=== PATIENT | male | born 1950 | race Caucasian/White ===

== ENCOUNTER 2018-01-03 00:08 | Emergency (ER) | payer OTHER ==
--- OUTSIDE RECORDS SUMMARY | 2018-01-03 00:11 | XMS REPORT | Summary of Care ---
:1950 Author Organization [facility] Address [address], [place] [address]- Encounter HQ Encntr_alias(FIN) [id number] Date(s): 10/14/15 - 10/14/15 [facility] [address] [place] [id number]- [place] Discharge Disposition: Home or Self Care Attending Physician: Azael Santiago MD Referring Physician: Physician, Non Associated MD Vital Signs No data available for this section Problem List Condition Effective Dates Status Health Status Informant Anemia(Confirmed) Resolved Arrhythmia(Confirmed) Resolved Hypoglycemic(Confirmed) Resolved Hypothyroidism(Confirmed) Resolved Migraines(Confirmed) Resolved Pituitary cyst(Confirmed) Resolved Allergies, Adverse Reactions, Alerts Substance Reaction Severity Status NKDA Active Medications No data available for this section Results No data available for this section Immunizations No data available for this section Procedures Procedure Date Related Diagnosis Body Site Knee arthroplasty TURP - Transurethral resection of prostate Social History Social History Type Response Substance Abuse IV drug use: No. Smoking Status Never smoker; Exposure to Tobacco Smoke None; Cigarette Smoking Last 365 Days No; Reg Smoking Cessation Counseling No Assessment and Plan No data available for this section
--- OUTSIDE RECORDS SUMMARY | 2018-01-03 00:11 | XMS REPORT | Summary of Care ---
:1950 Author Organization [facility] Address [address], [place] [address]- Encounter HQ Beena(ARLEN) [id number] Date(s): 09/02/15 - 09/02/15 [facility] [address] [place] [id number] [facility] Discharge Disposition: Home Attending Physician: Adolph Krueger MD Referring Physician: Adolph Krueger MD Vital Signs Most recent to oldest 1 2 3 [Reference Range]: Height 172.72 cm (09/02/15 6:14 AM) Blood Pressure [90-140/60-90 104/56 mmHg 104/58 mmHg 105/57 mmHg mmHg] (09/02/15 11:00 AM) (09/02/15 10:45 AM) (09/02/15 10:30 AM) Respiratory Rate [14-20 BRMIN] 16 BRMIN 13 BRMIN 6 BRMIN (09/02/15 11:00 AM) *LOW* *LOW* (09/02/15 10:45 AM) (09/02/15 10:30 AM) Weight 72.727 kg (09/02/15 6:14 AM) Body Mass Index 24.38 m2 (09/02/15 6:14 AM) Problem List Condition Effective Dates Status Health Status Informant Anemia(Confirmed) Resolved Arrhythmia(Confirmed) Resolved Hypoglycemic(Confirmed) Resolved Hypothyroidism(Confirmed) Resolved Migraines(Confirmed) Resolved Pituitary cyst(Confirmed) Resolved Allergies, Adverse Reactions, Alerts Substance Reaction Severity Status NKDA Active Medications fentaNYL 100 microgram, Route: IV, ONCE, Dosing Weight 72.727, kg, Start date: 09/02/15 8 :02:00 CDT, Stop date: 09/02/15 8:02:00 CDT Start Date: 09/02/15 Stop Date: 09/02/15 Status: Completedlidocaine 2% MPF 5 mL, Route: SUB-Q, Dosing Weight 72.727, kg, ONCE, Start date: 09/02/15 8:02: 00 CDT, Stop date: 09/02/15 8:02:00 CDT Start Date: 09/02/15 Stop Date: 09/02/15 Status: Completedmidazolam 2 mg, Route: IV, ONCE, Dosing Weight 72.727, kg, Start date: 09/02/15 8:03:00 CDT, Stop date: 09/02/15 8:03:00 CDT Start Date: 09/02/15 Stop Date: 09/02/15 Status: CompletedOmnipaque 300 150 ml, Route: INTRAARTERIAL, Dosing Weight 72.727, kg, ONCE, Start date: 8:02:00 CDT, Stopdate: 09/02/15 8:02:00 CDT Start Date: 09/02/15 Stop Date: 09/02/15 Status: Completed Results No data available for this section [...]
[2018-01-03 00:46] LABS: Absolute Lymphocytes (CBC) 1.1 K/uL (0.7-4.9); Absolute Monocytes 0.9 K/uL (0.1-1.3); Basophils % 0.8 % (0-1.3); Eosinophils % 0.3 % (0-4.4); Hematocrit 40.5 % (39.6-49.0); Lymphocytes % 10.5 % (15.3-44.8); MCH 30.5 pg (27.0-35.0); MCV 91.2 fL (80-100); MPV 8.5 fL (7.6-11.3); Monocytes % 8.9 % (3.3-12.3); RBC Red Blood Cell Count 4.44 M/uL (4.33-5.43)
[2018-01-03 01:04] LABS: Albumin 3.1 g/dL (3.4-5.0); Bilirubin Direct 0.6 mg/dL (0-0.2); Bilirubin Total 1.6 mg/dL (0.2-1.0); Potassium 3.2 mmol/L (3.5-5.1)
[2018-01-03] MEDS ORDERED: NA CHLORIDE 0.9% 1,000 ML ONE (01:31)
[2018-01-03] MEDS ORDERED: POTASSIUM CL SA 10 MEQ TAB PO ONE (02:12)
[2018-01-03] MEDS ORDERED: KCL 20 MEQ/100 mL IVPB 20 MEQ/100 ML BAG IV ONE (02:13)
--- NOTE | 2018-01-03 03:00 | ER ---
Nurse's Notes [facility] Name: Morales Conway Age: 67 yrs Sex: Male : 1950 Arrival Date: 01/03/2018 Time: 00:12 Bed 14 Private MD: Diagnosis: Diarrhea, unspecified;Hypokalemia Presentation: 01/03 00:27 Presenting complaint: Patient states: he has stage IV prostate cancer and has had bb diarrhea x 2 days he is feeling very weak and short of breath and has not been able to eat or drink. Transition of care: patient was not received from another setting of care. Onset of symptoms was December 31, 2017. Risk Assessment: Do you want to hurt yourself or someone else? Patient reports no desire to harm self or others. Initial Sepsis Screen: Does the patient meet any 2 criteria? Yes Does the patient have a suspected source of infection? Yes: Other: pt is immunocompromised. Care prior to arrival: None. 00:27 Method Of Arrival: Ambulatory bb 00:27 Acuity: RUBIO 2 bb Historical: - Allergies: 00:35 No Known Allergies; bb - Home Meds: 00:35 Zetia 10 mg Oral tab 1 tab once daily [Active]; Synthroid Oral [Active]; Zytiga 250 mg bb Oral tab 4 tabs once daily [Active]; prednisone 5 mg Oral tab 1 tab 2 times per day [Active]; felodipine 5 mg Oral Tb24 1 tab once daily [Active]; levetiracetam 500 mg Oral tab 1 tab 2 times per day [Active]; Xarelto 10 mg Oral tab 1 tab once daily [Active]; calcium [Active]; metoprolol succinate oral oral [Active]; Lupron Depot (4 Month) 30 mg intramuscular sykt every 4 mo [Active]; Xgeva subcutaneous subcutaneous [Active]; - PMHx: 00:35 Atrial Fib; High Cholesterol; Hypertension; Hypothyroidism; PROSTATE CA; Seizures; bb - PSHx: 00:35 Knee surgery; nephrostomy tube (discontinued); bb - Immunization history:: Adult Immunizations up to date. - Social history:: Smoking status: Patient/guardian denies using tobacco, Patient/guardian denies using alcohol, street drugs. - Ebola Screening: : No symptoms or risks identified at this time. Screenin:44 Abuse screen: Denies threats or abuse. Nutritional screening: No deficits noted. jb4 Tuberculosis screening: No symptoms or risk factors identified. Fall Risk IV access (20 points). Assessment: 00:41 General: Appears in no apparent distress. uncomfortable, Behavior is calm, cooperative, jb4 appropriate for age. Pain: Denies pain. Neuro: Level of Consciousness is awake, alert, obeys commands, Oriented to person, place, time, situation. Cardiovascular: Heart tones S1 S2 present Patient's skin is warm and dry. Respiratory: Airway is patent Respiratory effort is even, unlabored, Respiratory pattern is regular, symmetrical, Breath sounds are clear bilaterally. GI: Abdomen is round non-distended, Bowel sounds present X 4 quads. Abd is soft and non tender X 4 quads. : No signs and/or symptoms were reported regarding the genitourinary system. EENT: No signs and/or symptoms were reported regarding the EENT system. Derm: Skin is intact, Skin is pink, warm \T\ dry. Musculoskeletal: Circulation, motion, and sensation intact. Reports weakness in generalized. 01:40 Reassessment: Patient appears in no apparent distress at this time. Patient and/or jb4 family updated on plan of care and expected duration. Pain level reassessed. Patient is alert, oriented x 3, equal unlabored respirations, skin warm/dry/pink. 03:00 Reassessment: Patient appears in no apparent distress at this time. Patient and/or jb4 family updated on plan of care and expected duration. Pain level reassessed. Patient is alert, oriented x 3, equal unlabored respirations, skin warm/dry/pink. 03:26 Reassessment: waiting for IV potassium to finish before discharge. jb4 03:45 Reassessment: Patient appears in no apparent distress at this time. Patient and/or jb4 family updated on plan of care and expected duration. Pain level reassessed. Patient is alert, oriented x 3, equal unlabored respirations, skin warm/dry/pink. Discussed D/c, F/u with pt and family, denies questions or concerns. Vital Signs: 00:35 BP 99 / 74; Pulse 119; Resp 26 S; Temp 99(O); Pulse Ox 94% on R/A; Weight 86.18 kg (R); bb Height 5 ft. 8 in. (172.72 cm) (R); Pain 0/10; 01:53 BP 102 / 66; Pulse 93; Resp 20; Pulse Ox 96% on R/A; oe 02:00 BP 118 / 67; Pulse 90; Resp 20; Pulse Ox 97% on R/A; jb4 03:00 BP 108 / 76; Pulse 110; Resp 20; Pulse Ox 94% on R/A; jb4 03:30 BP 126 / 67; Pulse 100; Resp 18; Pulse Ox 96% on R/A; jb4 00:35 Body Mass Index 28.89 (86.18 kg, 172.72 cm) bb ED Course: 00:12 Patient arrived in ED. al2 00:20 Duncan Leblanc MD is Attending Physician. tw4 00:23 Paulie Lee, LON is Primary Nurse. jb4 00:31 Triage completed. bb 00:35 Arm band placed on Patient placed in an exam room, on a stretcher, on pulse oximetry. bb Family accompanied patient. 00:44 Patient has correct armband on for positive identification. Bed in low position. Call jb4 light in reach. Side rails up X 1. Pulse ox on. NIBP on. 00:44 Initial lab(s) drawn, by me, sent to lab. Inserted saline lock: 22 gauge in left jb4 antecubital area, using aseptic technique. Blood collected. 03:00 No provider procedures requiring assistance completed. jb4 03:45 IV discontinued, intact, bleeding controlled. jb4 Administered Medications: 01:00 Drug: NS 0.9% 1000 ml Route: IV; Rate: 1000 ml; Site: left femoral; jb4 02:45 Follow up: Response: No adverse reaction; IV Status: Completed infusion jb4 02:15 Drug: Potassium Chloride 40 mEq Route: PO; jb4 03:56 Follow up: Response: No adverse reaction jb4 02:16 Drug: Potassium Chloride 20 mEq Route: IV; Rate: calculated rate; Site: left jb4 antecubital; 03:56 Follow up: Response: No adverse reaction; IV Status: Completed infusion jb4 Outcome: 03:00 Discharge ordered by . tw4 03:45 Discharged to home ambulatory. jb4 03:45 Condition: stable 03:45 Discharge instructions given to patient, family, Instructed on discharge instructions, follow up and referral plans. medication usage, Demonstrated understanding of instructions, follow-up care, medications, Prescriptions given X 1. 03:50 Patient left the ED. jb4 Signatures: Cinda Thakur RN RN Paulie Bell RN RN jb4 Titi Ariza Angelica al2 Wadley, Terrence, MD MD tw4 Corrections: (The following items were deleted from the chart) :01/02 22:30 Response: No adverse reaction; Marked relief of symptoms jb4 jb4 01/03 01:23 01:22 Response: No adverse reaction; Marked relief of symptoms jb4 jb4
--- NOTE | 2018-01-03 03:00 | EDPHYS ---
Physician Documentation [facility] Name: Morales Conway Age: 67 yrs Sex: Male : 1950 Arrival Date: 01/03/2018 Time: 00:12 Bed 14 Private MD: ED Physician Duncan Leblanc HPI: 01/03 01:42 This 67 yrs old Male presents to ER via Ambulatory with complaints of tw4 Diarrhea. 01:42 The patient presents to the emergency department with diarrhea. Onset: The tw4 symptoms/episode began/occurred 3 day(s) ago. Possible causes: unknown. The symptoms are aggravated by nothing. The symptoms are alleviated by nothing. Associated signs and symptoms: The patient has no apparent associated signs or symptoms. Severity of symptoms: At their worst the symptoms were moderate in the emergency department the symptoms are unchanged. The patient has not experienced similar symptoms in the past. Historical: - Allergies: 00:35 No Known Allergies; bb - Home Meds: 00:35 Zetia 10 mg Oral tab 1 tab once daily [Active]; Synthroid Oral [Active]; Zytiga 250 mg bb Oral tab 4 tabs once daily [Active]; prednisone 5 mg Oral tab 1 tab 2 times per day [Active]; felodipine 5 mg Oral Tb24 1 tab once daily [Active]; levetiracetam 500 mg Oral tab 1 tab 2 times per day [Active]; Xarelto 10 mg Oral tab 1 tab once daily [Active]; calcium [Active]; metoprolol succinate oral oral [Active]; Lupron Depot (4 Month) 30 mg intramuscular sykt every 4 mo [Active]; Xgeva subcutaneous subcutaneous [Active]; - PMHx: 00:35 Atrial Fib; High Cholesterol; Hypertension; Hypothyroidism; PROSTATE CA; Seizures; bb - PSHx: 00:35 Knee surgery; nephrostomy tube (discontinued); bb - Immunization history:: Adult Immunizations up to date. - Social history:: Smoking status: Patient/guardian denies using tobacco, Patient/guardian denies using alcohol, street drugs. - Ebola Screening: : No symptoms or risks identified at this time. ROS: 01:42 Constitutional: Negative for fever, chills, and weight loss, Eyes: Negative for injury, tw4 pain, redness, and discharge, Cardiovascular: Negative for chest pain, palpitations, and edema, Respiratory: Negative for shortness of breath, cough, wheezing, and pleuritic chest pain, Back: Negative for injury and pain, MS/Extremity: Negative for injury and deformity. 01:42 Abdomen/GI: Positive for diarrhea, Negative for abdominal pain, nausea and vomiting, nausea, vomiting, and diarrhea, nausea, vomiting, abdominal cramps, abdominal distension, anorexia, dysphagia, hematemesis. Exam: 01:42 Constitutional: This is a well developed, well nourished patient who is awake, alert, tw4 and in no acute distress. Head/Face: Normocephalic, atraumatic. Chest/axilla: Normal chest wall appearance and motion. Nontender with no deformity. No lesions are appreciated. Cardiovascular: Regular rate and rhythm with a normal S1 and S2. No gallops, murmurs, or rubs. Normal PMI, no JVD. No pulse deficits. Respiratory: Lungs have equal breath sounds bilaterally, clear to auscultation and percussion. No rales, rhonchi or wheezes noted. No increased work of breathing, no retractions or nasal flaring. Abdomen/GI: Soft, non-tender, with normal bowel sounds. No distension or tympany. No guarding or rebound. No evidence of tenderness throughout. Back: No spinal tenderness. No costovertebral tenderness. Full range of motion. MS/ Extremity: Pulses equal, no cyanosis. Neurovascular intact. Full, normal range of motion. Neuro: Awake and alert, GCS 15, oriented to person, place, time, and situation. Cranial nerves II-XII grossly intact. Motor strength 5/5 in all extremities. Sensory grossly intact. Cerebellar exam normal. Normal gait. 01:42 Constitutional: The patient appears alert, awake, comfortable, frail. Vital Signs: 00:35 BP 99 / 74; Pulse 119; Resp 26 S; Temp 99(O); Pulse Ox 94% on R/A; Weight 86.18 kg (R); bb Height 5 ft. 8 in. (172.72 cm) (R); Pain 0/10; 01:53 BP 102 / 66; Pulse 93; Resp 20; Pulse Ox 96% on R/A; oe 02:00 BP 118 / 67; Pulse 90; Resp 20; Pulse Ox 97% on R/A; jb4 03:00 BP 108 / 76; Pulse 110; Resp 20; Pulse Ox 94% on R/A; jb4 03:30 BP 126 / 67; Pulse 100; Resp 18; Pulse Ox 96% on R/A; jb4 00:35 Body Mass Index 28.89 (86.18 kg, 172.72 cm) bb MDM: 00:20 Patient medically screened. tw4 01:44 Differential diagnosis: Nonspecific abd pain. Data reviewed: vital signs, nurses notes. tw4 Data interpreted: supervisor [employer]: rhythm is. Counseling: I had a detailed discussion with the patient and/or guardian regarding: the historical points, exam findings, and any diagnostic results supporting the discharge/admit diagnosis. 01/03 00:20 Order name: Basic Metabolic Panel; Complete Time: :4 01/03 01:31 Interpretation: Normal except: K 3.2; GFR 50; CRE 1.40. 4 01/03 00:20 Order name: CBC with Diff; Complete Time: 4 01/03 01:31 Interpretation: Normal except: HGB 13.5; LYM% 10.5; DAV% 79.5. tw4 01/03 00:20 Order name: Creatinine for Radiology; Complete Time: 30 4 01/03 01:31 Interpretation: Normal except: CRE 1.40; GFR 50. 4 01/03 00:20 Order name: Hepatic Function; Complete Time: :4 01/03 01:31 Interpretation: ALK 124; BILIT 1.6; BILID 0.6; ALB 3.1; GLOB 3.9; A/G 0.8. tw4 01/03 00:20 Order name: Lipase; Complete Time: 30 4 01/03 01:31 Interpretation: Normal except: LIP 68. tw4 01/03 00:20 Order name: IV Saline Lock; Complete Time: 00:36 4 01/03 00:20 Order name: Labs collected and sent; Complete Time: 00:36 tw4 Administered Medications: 01:00 Drug: NS 0.9% 1000 ml Route: IV; Rate: 1000 ml; Site: left femoral; jb4 02:45 Follow up: Response: No adverse reaction; IV Status: Completed infusion jb4 02:15 Drug: Potassium Chloride 40 mEq Route: PO; jb4 03:56 Follow up: Response: No adverse reaction jb4 02:16 Drug: Potassium Chloride 20 mEq Route: IV; Rate: calculated rate; Site: left jb4 antecubital; 03:56 Follow up: Response: No adverse reaction; IV Status: Completed infusion jb4 Disposition: 01/03/18 03:00 Discharged to Home. Impression: Diarrhea, unspecified, Hypokalemia. - Condition is Stable. - Discharge Instructions: Food Choices to Help Relieve Diarrhea, Adult, Diarrhea, Adult, Potassium Content of Foods, Hypokalemia. - Prescriptions for Lomotil 2.5- 0.025 mg Oral Tablet - take 2 tablet by ORAL route once daily As needed; 20 tablet. - Medication Reconciliation Form, Thank You Letter, Antibiotic Education, Prescription Opioid Use form. - Follow up: Private Physician; When: Upon discharge from the Emergency Department; Reason: Further diagnostic work-up, Recheck today's complaints, Continuance of care, Re-evaluation by your physician. - Problem is new. - Symptoms have improved. Signatures: Dispatcher [employer] EDCinda Day RN RN Paulie Lee RN RN jb4 Duncan Leblanc MD MD tw4 Corrections: (The following items were deleted from the chart) 03:50 03:00 01/03/2018 03:00 Discharged to Home. Impression: Diarrhea, unspecified; jb4 Hypokalemia. Condition is Stable. Forms are Medication Reconciliation Form, Thank You Letter, Antibiotic Education, Prescription Opioid Use. Follow up: Private Physician; When: Upon discharge from the Emergency Department; Reason: Further diagnostic work-up, Recheck today's complaints, Continuance of care, Re-evaluation by your physician. Problem is new. Symptoms have improved. tw4
[2018-01-03 03:54] VITALS: TEMP 99
[2018-01-03 03:58] VITALS: BP 108/76; O2SAT 94
== END 2018-01-03 03:50 | disposition home or self-care (01) ==
LOC: ER 00:08
DX: E87.6 Hypokalemia (principal); I10 Essential (primary) hypertension; E78.00 Pure hypercholesterolemia, unspecified; I48.91 Unspecified atrial fibrillation; E03.9 Hypothyroidism, unspecified; G40.909 Epilepsy, unspecified, not intractable, without status epilepticus; Z79.01 Long term (current) use of anticoagulants; Z85.46 Personal history of malignant neoplasm of prostate
CPT/HCPCS: 36415; 80048; 80076; 83690; 85025; 96361; 96365; 96366; 99284; J7030

== ENCOUNTER 2018-01-27 16:11 | Emergency (ER) | payer OTHER ==
--- OUTSIDE RECORDS SUMMARY | 2018-01-27 16:13 | XMS REPORT | Continuity of Care Document ---
:1950 Author Organization Interface Problems Problem Status Onset Classification Date Comments Source Date Reported D18.01 - Active 07/11/19 [facility]EMANGIOMA [facility] [address] [place] SKIN AND SUBCUTA F03.90, Q78.3 Active 10/09/[address] XRAY Active 08/28/[address] Anemia Resolved Problem 10/17/2015 [facility] Arrhythmia Resolved Problem 10/17/2015 [facility] Hypoglycemic Resolved Problem 10/17/2015 [facility] Hypothyroidism Resolved Problem 10/17/2015 [facility] Migraines Resolved Problem 10/17/2015 [facility] Pituitary cyst Resolved Problem 10/17/2015 [facility] OTHER Active [facility] 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 [facility] CONGENITAL Medical DEFORMITIES [place] Medications Medication Details Route Status Patient Ordering Order Source Instructions Provider Date Midazolam 2 mg, Inactive 09/02/19 [facility] Route: IV, Medical ONCE, Center Dosing Weight 72.727, kg, Start date: 09/02/15 8:03:00 CDT, Stop date: 09/02/15 8:03:00 CDT lidocaine 2% 5 mL, Inactive 09/02/19 [facility] MPF Route: 16 Medical SUB-Q, Center Dosing Weight 72.727, kg, ONCE, Start date: 09/02/15 8:02:00 CDT, Stop date: 09/02/15 8:02:00 CDT Fentanyl 100 Inactive 09/02/19 [facility] microgram, 16 Medical Route: IV, Center ONCE, Dosing Weight 72.727, kg, Start date: 09/02/15 8:02:00 CDT, Stop date: 09/02/15 8:02:00 CDT Omnipaque 300 150 ml, Inactive 09/02/19 [facility] Route: 16 Medical INTRAARTER Center IAL, Dosing Weight 72.727, kg, ONCE, Start date: 09/02/15 8:02:00 CDT, Stop date: 09/02/15 8:02:00 CDT Allergies, Adverse Reactions, Alerts Substance Category Reaction Severity Reaction Status Date Comments Source type Reported Immunizations Immunization Date Given Site Status Last Updated Comments Source Results Order Name Results Value Reference Date Interpretation Comments Source Range PET CT PET CT EXAM: NM PET CT Head 10/13 [facility] Dementia Dementia /2016 - Medical This report was dictated by a Edge Beader/Fellow. I have personally reviewed the images as Center well as the Resident's interpretation and agree with the findings. DATE: 10/14/2015 Read by: Mino Chandler MD Resident: Mino Chandler MD Dictated Date/time: 10/14/15 13:34 Electronically Signed by: Brandon Mcnamara MD 10/14/15 15:43 FINAL REPORT INDICATION: 64-year-old male with dementia. COMPARISON: Cervical angiogram 09/02/2015 TECHNIQUE: Approximately 30 minutes after IV injection of 15.6 mCi FDG while patient was on interictal status, brain PET/CT imaging was obtained. The PET images were compared to the normal brain database from the [employer]. FINDINGS: When compared to the normal brain database, there is no significant decrease in metabolic activity to suggest any particular etiology of dementia. The left temporal lobe and the bilateral cere bellar display mild atrophy. Ventricles are normal in size. IMPRESSION: 1. Normal metabolic activity of the brain. No scan evidence of neural degenerative disorder. 2. Mild atrophy of the left temporal lobe. Angiogram Angiogram PROCEDURE: 09/01 [facility] cervical cervical /2015 - Medical artery artery 1. Diagnostic Cerebral Angiogram: 6 vessel This report was dictated by a Edge Beader/Fellow. I have personally reviewed the images as Center bilateral bilateral well as the Resident's interpretation and agree with the findings. VR VR 2. 3D angiography: Left internal carotid artery Read by: Trevor Foster MD Resident: Trevor Foster MD Dictated Date/time: 09/02/15 11:08 Electronically Signed by: Eron Krueger MD 09/09/15 10:30 FINAL REPORT DATE: 09/02/2015 7:26 AM CDT INDICATION: Cavernous malformation HISTORY: 64 years Male history of seizure-like episodes found to have a cavernous malformation versus other vascular irregularity on magnetic resonance imaging. Dr. love Solomon requesting angiogram for further evaluation of aneurysm and possible AVM. ATTENDING: Eron Krueger M.D. He was present and immediately available for entire procedure, performing all critical portions. Reviewed all angiographic results. FELLOW: Trevor Foster M.D. COMPARISON: MRI brain with without contrast PROCEDURE: Informed consent was obtained describing all the risks, benefits and alternatives of the procedure the patient was brought to the interventional suite placed in the supine position where mode rate sedation was administered under the supervision of the attending. The patient was then prepped and draped in sterile fashion. The Right femoral artery was accessed using single wall micropuncture technique and a 5 Indonesian sheath was placed. A 5 Indonesian Angled Deputy catheter was coaxially advanced with a 0.035 Terumo Glidewire through the sheath into aorta arch to select the below mentioned arterie s using roadmap technique. Two-dimensional and selective 3-D cerebral angiogram runs were performed. After review of the angiography data, the catheter was withdrawn. Right femoral artery angiogram wa s performed and the catheter was removed. The femoral artery sheath removed and closed by Application of Angio-Seal closure device Post procedure neurological examination was at the patient's [facility]. The patient was was then transferred to interventional holding area for post procedure care. MEDICATIONS: 0.5% Lidocaine SQ 20 cc 1 mg Versed 50 micrograms Fentanyl CONTRAST: 160 cc. RADIATION DOSE: Cumulative Air KERMA Frontal: 548 mGy Cumulative Air KERMA Lateral: 246 mGy FLUOROSCOPY TIME: 9.8 minutes TASKS: 1. Right femoral artery catheterization with 2-D angiogram run 2 Right external carotid artery selective catheterization with 2D angiogram run 3 Right Internal carotid artery selective catheterization and 2D angiogram Runs 4 Right vertebral artery selective catheterization and 2D angiogram Runs 5 Left external carotid artery selective catheterization and 2D angiogram Runs 6 Left Internal carotid artery selective catheterization and 2D and 3D angiogram runs 7 Left vertebral artery selective catheterization and 2D angiogram Runs 8 Application of Angio-Seal closure device FINDINGS: 1 Right common carotid artery: Right common carotid reveals normal takeoff of the internal carotid artery and external carotid artery and terminal branches. The bifurcation is smooth without irregularit y or any significant evidence of atherosclerotic disease or stenosis. No early venous shunting is present. 2 Right external carotid artery: External carotid artery injection shows normal opacification of the external carotid artery and its terminal branches. There is no evidence of tumor blush, arteriovenous shunting or other abnormalities. 3 Right internal carotid artery: Right internal carotid artery injection revealed brisk opacification of the internal carotid artery (ICA), middle cerebral artery (MCA), and the anterior cerebral artery (SAL). No aneurysm, arteriovenous malformation or fistula. Capillary and Venous phases show normal opacification without any evidence of perfusion deficits or abnormal flow obstruction. 4 Right vertebral artery: Right vertebral artery injection revealed no aneurysm, arteriovenous fistula or malformation. . Capillary and Venous phases show normal opacification without any evidence of perfusion deficits or abnormal flow obstruction. 5 Left common carotid artery: Left common carotid reveals normal takeoff of the cervical internal carotid artery and external carotid artery and terminal branches. The bifurcation is smooth without irre gularity or any significant evidence of atherosclerotic disease or stenosis. No early venous shunting is present. 6 Left external carotid artery: External carotid artery injection shows normal opacification of the external carotid artery and its terminal branches. There is no evidence of tumor blush, arteriovenous shunting or other abnormalities. 7 Left internal carotid artery: Left internal carotid artery injection reveals revealed brisk opacification of the internal carotid artery (ICA), middle cerebral artery (MCA), and the anterior cerebral artery (SAL). No aneurysm, arteriovenous malformation or fistula. Capillary and Venous phases show normal opacification without any evidence of perfusion deficits or abnormal flow obstruction. 8 Left vertebral artery: Left vertebral artery injection reveals no aneurysm, arteriovenous fistula or malformation. . Capillary and Venous phases show normal opacification without any evidence of perfusion deficits or abnormal flow obstruction. IMPRESSION: 1. Normal cerebral angiography. 2. Irregularity of the left A1 A2 junction with mild fusiform changes, but no aneurysm. 3. No evidence of arteriovenous malformation or arteriovenous fistula Vital Signs Vital Sign Value Date Comments Source Systolic (mm Hg) 104 09/02/2015 [facility] Diastolic (mm Hg) 56 09/02/2015 [facility] Respitory Rate 16 09/02/2015 [facility] Respitory Rate 13 09/02/2015 [facility] Systolic (mm Hg) 104 09/02/2015 [facility] Diastolic (mm Hg) 58 09/02/2015 [facility] Systolic (mm Hg) 105 09/02/2015 [facility] Diastolic (mm Hg) 57 09/02/2015 [facility] Respitory Rate 6 09/02/2015 [facility] Height 172.72 cm 09/02/2015 [facility] BMI Calculated 24.38 09/02/2015 [facility] Weight 72.727 09/02/2015 [facility] Encounters Location Location Encounter Encounter Reason Attending ADM DC Status Source Details Type Number For Provider Date Date Visit Outpatient [id number] ERON 09/01 [facility] Bedded [id number] Eron 09/01 09/01 [facility] [place] /2015 [facility] Outpatient [id number] LOVE JONE 09/03 [facility] [place] Outpatient [id number] ERON 09/03 [facility] Outpatient [id number] Non 10/13 10/14 [facility] Physician /2015 [facility] Outpatient [id number] ERON 07/28 [facility] [place] Outpatient [id number] BEAU 09/09 [facility] [place] Outpatient [id number] BEAU 03/10 [facility] [place] Procedures Procedure Code Date Perfomer Comments Source Knee arthroplasty [id number] [facility] TURP - Transurethral [id number] [facility]
[2018-01-27 17:25] LABS: Absolute Neutrophil 7.6 K/uL (1.8-8.0); Basophils % 0.5 % (0-1.3); Eosinophils % 0.7 % (0-4.4); Hematocrit 37.5 % (39.6-49.0); Lymphocytes % 9.9 % (15.3-44.8); MCH 30.1 pg (27.0-35.0); MCV 91.3 fL (80-100); MPV 9.4 fL (7.6-11.3); Monocytes % 10.1 % (3.3-12.3); RBC Red Blood Cell Count 4.11 M/uL (4.33-5.43)
[2018-01-27 17:32] LABS: Protime INR 1.6
[2018-01-27 17:47] LABS: Albumin 3.3 g/dL (3.4-5.0); Bilirubin Direct 0.2 mg/dL (0-0.2); Bilirubin Total 0.5 mg/dL (0.2-1.0); Magnesium 1.8 mg/dL (1.8-2.4); Potassium 3.1 mmol/L (3.5-5.1); Protein, Total 6.5 g/dL (6.4-8.2)
[2018-01-27] MEDS ORDERED: POTASSIUM 25 MEQ EFFERV TAB ONE (18:17)
--- NOTE | 2018-01-27 18:20 | RAD REPORT ---
EXAM DESCRIPTION: RAD - Chest Single View - 01/27/2018 5:29 pm CLINICAL HISTORY: Chest pain COMPARISON: None. TECHNIQUE: AP portable chest image was obtained 1724 hours . FINDINGS: Lung volumes are low. Interstitial markings are prominent. Minimal patchy alveolar opaciti es are present. Mild cardiomegaly is present accentuated by shallow inspiration and portable techniqu e. No measurable pleural effusion and no pneumothorax. No acute bony abnormality seen. No acute aorti c findings suspected. IMPRESSION: Mild CHF/volume overload pattern accentuated by body habitus, portable technique and sha llow inspiration.
--- NOTE | 2018-01-27 19:12 | RAD REPORT ---
EXAM DESCRIPTION: CT - Stone Protocol - 01/27/2018 6:33 pm CLINICAL HISTORY: Dark red urine, hematuria, history of prostate cancer COMPARISON: CT imaging September 2016 TECHNIQUE: Axial 5 mm thick images were obtained without oral or IV contrast. The hgxeh-yx-hchi span s the entirety of the system partially obscuring uppermost abdomen and lung bases. All CT scans are performed using dose optimization technique as appropriate and may include automated exposure control or mA/KV adjustment according to patient size. FINDINGS: No hydronephrosis is present and no obstructing ureteral calculi. No suspicious renal mass es. Isodense masses and pyelonephritis are not excluded on a stone protocol CT scan. Urinary bladder is partially contracted. An 18 millimeter bladder diverticulum projects from the left side. Patient gives a history of prostate cancer. Prostate gland was very small in 2017. No surgical clips are present. There is currently a large lobulated soft tissue mass of the prostate gland level. This is 6.2 x 4.2 cm in size. Adjacent nodularity is present. There is a 13 millimeter lymph node at the origin of left inguinal canal. Patient has bilateral fat filled inguinal hernias. Liver is grossly abnormal. There are innumerable variably sized low-density masses throughout the claudine er parenchyma almost certainly extensive metastatic disease. No splenomegaly or significant splenic f inding. No acute pancreatic process. Gallbladder is contracted. No biliary tree dilatation. Small hiatal hernia is present. No acute gastric finding. Patient has a large duodenal diverticulum. No acute large or small bowel finding. There is diverticulosis without diverticulitis. No omental thickening. Minimal sub centimeter periaortic lymph nodes. No free air, free fluid or infl ammatory stranding. Sclerotic changes are present in the right ischium. There is a sclerotic focus in the right-side pubi c symphysis. These changes are similar to 2017. Sclerotic focus in the left ilium is present. Sclerot ic or blastic areas are seen in L3 and L2. Posterior gutter atelectasis changes are present. A 15 millimeter noncalcified nodule is present post erior lower lung field (image 5/172). An adjacent 8 millimeter nodule is present. Cardiomegaly is pre sent. A 3 centimeter x 2.5 centimeter low-density mass is present adjacent to the distal esophagus. T here is herniated fat at the kajal of the diaphragm. Trace pleural fluid present on the right. IMPRESSION: Innumerable metastatic lesions throughout the liver. Large 6 x 4 centimeter lobulated mass at the prostate gland level presumed to be root residual or rec urrent prostate carcinoma. Numerous bony metastatic lesions not substantially different from 2017. No hydronephrosis, obstructing calculus or acute finding. Hematuria is probably related to the pro state level mass. Isodense masses and pyelonephritis are not excluded on stone protocol technique.
--- NOTE | 2018-01-27 20:17 | ER ---
Nurse's Notes [facility] Name: Morales Conway Age: 67 yrs Sex: Male : 1950 Arrival Date: 01/27/2018 Time: 16:14 Bed 27 Private MD: Santa Vee Diagnosis: Hematuria, unspecified Presentation: 01/27 16:20 Presenting complaint: Patient states: dark red urine started today. Pt states this sv usually happens after he lifts things. Transition of care: patient was not received from another setting of care. Onset of symptoms was January 27, 2018. Care prior to arrival: None. 16:20 Method Of Arrival: Ambulatory sv 16:20 Acuity: RUBIO 3 sv 16:46 Risk Assessment: Do you want to hurt yourself or someone else? Patient reports no rv desire to harm self or others. Initial Sepsis Screen: Does the patient meet any 2 criteria? No. Patient's initial sepsis screen is negative. Does the patient have a suspected source of infection? No. Patient's initial sepsis screen is negative. Historical: - Allergies: 16:22 No Known Allergies; sv - Home Meds: 16:48 calcium [Active]; felodipine 5 mg Oral Tb24 1 tab once daily [Active]; levetiracetam rv 500 mg Oral tab 1 tab 2 times per day [Active]; Lupron Depot (4 Month) 30 mg intramuscular sykt every 4 mo [Active]; metoprolol succinate Oral [Active]; prednisone 5 mg Oral tab 1 tab 2 times per day [Active]; Synthroid Oral [Active]; Xarelto 10 mg Oral tab 1 tab once daily [Active]; Xgeva subcutaneous [Active]; Zetia 10 mg Oral tab 1 tab once daily [Active]; Zytiga 250 mg Oral tab 4 tabs once daily [Active]; - PMHx: 16:22 Atrial Fib; Hypertension; High Cholesterol; Hypothyroidism; PROSTATE CA; Seizures; sv - PSHx: 16:22 Knee surgery; nephrostomy tube (discontinued); sv - Immunization history:: Flu vaccine is up to date. - Social history:: Smoking status: Patient/guardian denies using tobacco. - Ebola Screening: : No symptoms or risks identified at this time. Screenin:38 Abuse screen: Denies threats or abuse. Denies injuries from another. Nutritional mg2 screening: No deficits noted. Tuberculosis screening: No symptoms or risk factors identified. 16:47 Fall Risk None identified. rv Assessment: 16:45 General: Appears in no apparent distress. comfortable, Behavior is calm, cooperative. rv Pain: Denies pain. Neuro: Level of Consciousness is awake, alert, obeys commands, Oriented to person, place, time, situation. Cardiovascular: Capillary refill < 3 seconds. Respiratory: Airway is patent. GI: No signs and/or symptoms were reported involving the gastrointestinal system. : No signs and/or symptoms were reported regarding the genitourinary system. EENT: No signs and/or symptoms were reported regarding the EENT system. Derm: Skin is intact. Vital Signs: 16:23 BP 130 / 77; Pulse 87; Resp 16; Temp 97.1; Pulse Ox 98% ; Weight 83.01 kg; Height 5 ft. sv 8 in. (172.72 cm); Pain 2/10; 18:02 BP 129 / 84; Pulse 97; Resp 18; Pulse Ox 95% on R/A; Pain 0/10; mg2 19:54 BP 135 / 93 LA Supine; Pulse 86 MON; Resp 16 S; Pulse Ox 96% on R/A; ds4 16:23 Body Mass Index 27.82 (83.01 kg, 172.72 cm) sv ED Course: 16:14 Patient arrived in ED. mr 16:15 Santa Vee MD is Private Physician. mr 16:22 Triage completed. sv 16:23 Arm band placed on. sv 16:38 Jaden Loera, LON is Primary Nurse. mg2 16:49 Patient has correct armband on for positive identification. Placed in gown. Bed in low rv position. Call light in reach. Side rails up X 1. Adult w/ patient. Pulse ox on. NIBP on. 16:53 Raquel Mercado FNP-C is PHCP. snw 16:53 Kolby De Leon MD is Attending Physician. snw 16:59 No provider procedures requiring assistance completed. mg2 17:16 Inserted saline lock: 20 gauge in right antecubital area, using aseptic technique. mg2 Blood collected. 17:28 XRAY Chest (1 view) In Process Unspecified. EDMS 18:34 CT Stone Protocol In Process Unspecified. EDMS 20:32 IV discontinued, bleeding controlled, No redness/swelling at site. Pressure dressing rv applied. Administered Medications: 18:15 Drug: Potassium Effervescent Tablet 50 mEq Route: PO; mg2 20:14 Follow up: Response: No adverse reaction mg2 20:31 Follow up: Response: No adverse reaction rv Outcome: 20:16 Discharge ordered by MD. sheridan 20:31 Discharged to home ambulatory. rv 20:31 Condition: good 20:31 Discharge instructions given to patient, Instructed on discharge instructions, follow up and referral plans. Demonstrated understanding of instructions, follow-up care. 20:32 Patient left the ED. rv Signatures: Dispatcher [employer] EDMS Ailyn Kolb, RN RN Raquel Mercado, COMPOSITE LAYUP WORKER-C COMPOSITE LAYUP WORKER-Csnw Cynthia JiménezansonBrent Michele, RN RN mg2 Gurjit Andino RN RN rv
--- NOTE | 2018-01-27 20:17 | EDPHYS ---
Physician Documentation [facility] Name: Morales Conway Age: 67 yrs Sex: Male : 1950 Arrival Date: 01/27/2018 Time: 16:14 Bed 27 Private MD: [place] ED Physician Kolby De Leon HPI: 01/27 21:36 This 67 yrs old Male presents to ER via Ambulatory with complaints of blood snw in urine. 21:36 Onset: The symptoms/episode began/occurred suddenly, today. Associated signs and snw symptoms: The patient has no apparent associated signs or symptoms. Modifying factors: The patient symptoms are alleviated by nothing, the patient symptoms are aggravated by nothing. The patient has experienced a previous episode. The patient has been recently seen by a physician: in [facility] yesterday, urology last week. Historical: - Allergies: 16:22 No Known Allergies; sv - Home Meds: 16:48 calcium [Active]; felodipine 5 mg Oral Tb24 1 tab once daily [Active]; levetiracetam rv 500 mg Oral tab 1 tab 2 times per day [Active]; Lupron Depot (4 Month) 30 mg intramuscular sykt every 4 mo [Active]; metoprolol succinate Oral [Active]; prednisone 5 mg Oral tab 1 tab 2 times per day [Active]; Synthroid Oral [Active]; Xarelto 10 mg Oral tab 1 tab once daily [Active]; Xgeva subcutaneous [Active]; Zetia 10 mg Oral tab 1 tab once daily [Active]; Zytiga 250 mg Oral tab 4 tabs once daily [Active]; - PMHx: 16:22 Atrial Fib; Hypertension; High Cholesterol; Hypothyroidism; PROSTATE CA; Seizures; sv - PSHx: 16:22 Knee surgery; nephrostomy tube (discontinued); sv - Immunization history:: Flu vaccine is up to date. - Social history:: Smoking status: Patient/guardian denies using tobacco. - Ebola Screening: : No symptoms or risks identified at this time. ROS: 21:36 Constitutional: Negative for fever, chills, and weight loss, Eyes: Negative for injury, snw pain, redness, and discharge, ENT: Negative for injury, pain, and discharge, Neck: Negative for injury, pain, and swelling, Cardiovascular: Negative for chest pain, palpitations, and edema, Respiratory: Negative for shortness of breath, cough, wheezing, and pleuritic chest pain, Abdomen/GI: Negative for abdominal pain, nausea, vomiting, diarrhea, and constipation, Back: Negative for injury and pain, MS/Extremity: Negative for injury and deformity, Skin: Negative for injury, rash, and discoloration, Neuro: Negative for headache, weakness, numbness, tingling, and seizure. 21:36 : Positive for hematuria, painless. Exam: 20:18 Constitutional: This is a well developed, well nourished patient who is awake, alert, snw and in no acute distress. Head/Face: Normocephalic, atraumatic. Eyes: Pupils equal round and reactive to light, extra-ocular motions intact. Lids and lashes normal. Conjunctiva and sclera are non-icteric and not injected. Cornea within normal limits. Periorbital areas with no swelling, redness, or edema. ENT: Nares patent. No nasal discharge, no septal abnormalities noted. Tympanic membranes are normal and external auditory canals are clear. Oropharynx with no redness, swelling, or masses, exudates, or evidence of obstruction, uvula midline. Mucous membranes moist. Neck: Trachea midline, no thyromegaly or masses palpated, and no cervical lymphadenopathy. Supple, full range of motion without nuchal rigidity, or vertebral point tenderness. No Meningismus. Chest/axilla: Normal chest wall appearance and motion. Nontender with no deformity. No lesions are appreciated. Cardiovascular: Regular rate and rhythm with a normal S1 and S2. No gallops, murmurs, or rubs. Normal PMI, no JVD. No pulse deficits. Respiratory: Lungs have equal breath sounds bilaterally, clear to auscultation and percussion. No rales, rhonchi or wheezes noted. No increased work of breathing, no retractions or nasal flaring. Abdomen/GI: Soft, non-tender, with normal bowel sounds. No distension or tympany. No guarding or rebound. No evidence of tenderness throughout. Back: No spinal tenderness. No costovertebral tenderness. Full range of motion. Skin: Warm, dry with normal turgor. Normal color with no rashes, no lesions, and no evidence of cellulitis. MS/ Extremity: Pulses equal, no cyanosis. Neurovascular intact. Full, normal range of motion. Neuro: Awake and alert, GCS 15, oriented to person, place, time, and situation. Cranial nerves II-XII grossly intact. Motor strength 5/5 in all extremities. Sensory grossly intact. Cerebellar exam normal. Normal gait. Vital Signs: 16:23 BP 130 / 77; Pulse 87; Resp 16; Temp 97.1; Pulse Ox 98% ; Weight 83.01 kg; Height 5 ft. sv 8 in. (172.72 cm); Pain 2/10; 18:02 BP 129 / 84; Pulse 97; Resp 18; Pulse Ox 95% on R/A; Pain 0/10; mg2 19:54 BP 135 / 93 LA Supine; Pulse 86 MON; Resp 16 S; Pulse Ox 96% on R/A; ds4 16:23 Body Mass Index 27.82 (83.01 kg, 172.72 cm) sv MDM: 16:59 Patient medically screened. snw 19:44 Data reviewed: vital signs, nurses notes. Data interpreted: Pulse oximetry: on room air snw is 95 %. Interpretation: acceptable. Counseling: I had a detailed discussion with the patient and/or guardian regarding: the historical points, exam findings, and any diagnostic results supporting the discharge/admit diagnosis, the presence of at least one elevated blood pressure reading (>120/80) during this emergency department visit, lab results, radiology results. Physician consultation: Ene Rivera MD was called at 19:44, regarding consult, patient's condition, need to evaluate the patient as soon as possible. 19:55 Physician consultation: states pt needs to be seen at [facility]. If not obstructed and no snw retention okay to dc for f/u. Discussed transfer verses f/u with patient and family. They would prefer f/u tomorrow, with the understanding if urinary retention or worsening s/s to return to nearest ED.. 20:15 Special discussion: Based on the history and exam findings, there is no indication for snw further emergent testing or inpatient evaluation. I discussed with the patient/guardian the need to see the urologist for further evaluation of the symptoms. oncology, cardiology. 01/27 16:53 Order name: Urine Culture snw 01/27 16:53 Order name: Urine Microscopic Only snw 01/27 16:57 Order name: Basic Metabolic Panel; Complete Time: 17:58 snw 01/27 16:57 Order name: CBC with Diff; Complete Time: 17:42 snw 01/27 16:57 Order name: LFT's; Complete Time: 17:58 snw 01/27 16:57 Order name: Magnesium; Complete Time: 17:58 snw 01/27 16:57 Order name: NT PRO-BNP; Complete Time: 17:58 snw 01/27 16:57 Order name: PT-INR; Complete Time: 17:42 snw 01/27 16:57 Order name: XRAY Chest (1 view); Complete Time: 18:40 snw 01/27 16:57 Order name: EKG; Complete Time: 16:57 snw 01/27 18:04 Order name: CT Stone Protocol; Complete Time: 19:17 snw 01/27 16:53 Order name: Urine Dipstick-Ancillary (obtain specimen); Complete Time: 16:58 snw 01/27 16:57 Order name: Cardiac monitoring; Complete Time: 16:58 snw 01/27 16:57 Order name: EKG - Nurse/Tech; Complete Time: 17:15 snw 01/27 16:57 Order name: IV Saline Lock; Complete Time: 17:16 snw 01/27 16:57 Order name: Labs collected and sent; Complete Time: 17:16 snw 01/27 16:57 Order name: O2 Per Protocol; Complete Time: 16:58 snw 01/27 16:57 Order name: O2 Sat Monitoring; Complete Time: 16:58 snw Administered Medications: 18:15 Drug: Potassium Effervescent Tablet 50 mEq Route: PO; mg2 20:14 Follow up: Response: No adverse reaction mg2 20:31 Follow up: Response: No adverse reaction rv Disposition: 01/28 07:13 Co-signature as Attending Physician, Kolby De Leon MD. rn Disposition: 01/27/18 20:16 Discharged to Home. Impression: Hematuria, unspecified. - Condition is Stable. - Discharge Instructions: Heart Failure, Hematuria, Adult, Cystoscopy. - Medication Reconciliation Form, Thank You Letter, Antibiotic Education, Prescription Opioid Use form. - Follow up: Private Physician; When: Tomorrow; Reason: Recheck today's complaints, Continuance of care. Follow up: Emergency Department; When: As needed; Reason: Worsening of condition, urinary retention. - Notes: please skip dose of Xarelto this evening Signatures: Dispatcher [employer] EDAilyn Helms, RN RN Raquel Kuo, PUPIL PERSONNEL SERVICES DIRECTOR-C PUPIL PERSONNEL SERVICES DIRECTOR-Csnw Kolby De Leon MD MD rn Gardose, Michele, RN RN mg2 Gurjit Andino, LON RN rv Corrections: (The following items were deleted from the chart) 01/27 20:32 20:16 01/27/2018 20:16 Discharged to Home. Impression: Hematuria, unspecified. rv Condition is Stable. Forms are Medication Reconciliation Form, Thank You Letter, Antibiotic Education, Prescription Opioid Use. Follow up: Private Physician; When: Tomorrow; Reason: Recheck today's complaints, Continuance of care. Follow up: Emergency Department; When: As needed; Reason: Worsening of condition, urinary retention. snw
[2018-01-27 21:16] VITALS: TEMP 97.1
[2018-01-27 21:18] VITALS: BP 135/93; O2SAT 96
--- NOTE | 2018-01-27 22:04 | EKG ---
Test Date: 2018-01-27 Test Time: 17:08:54 Occasional Babysitter: VENKAT MEASUREMENT RESULTS: Intervals: Rate: 89 ND: QRSD: 88 QT: 376 QTc: 457 [place]: P: ND: QRS: 15 T: 213 INTERPRETIVE STATEMENTS: Atrial fibrillation LVH with secondary repolarization changes Abnormal ECG Compared to ECG 12/24/2016 10:07:27 Myocardial infarct finding no longer present Electronically Signed On 01-27-18 22:04:17 CDT by Fredy Castellano
== END 2018-01-27 20:32 | disposition home or self-care (01) ==
LOC: ER 16:11
DX: R31.9 Hematuria, unspecified (principal); I10 Essential (primary) hypertension; I48.91 Unspecified atrial fibrillation; E78.00 Pure hypercholesterolemia, unspecified; E03.9 Hypothyroidism, unspecified; Z79.01 Long term (current) use of anticoagulants; Z85.46 Personal history of malignant neoplasm of prostate
CPT/HCPCS: 36415; 71045; 74176; 76377; 80048; 80076; 83735; 83880; 85025; 85610; 93005; 99284

== ENCOUNTER 2018-02-04 08:48 | Observation (INO) | payer OTHER ==
--- OUTSIDE RECORDS SUMMARY | 2018-02-04 08:50 | XMS REPORT | Continuity of Care Document ---
:1950 Author Organization Interface Problems Problem Status Onset Classification Date Comments Source Date Reported D18.01 - Active 07/11/19 [facility]EMANGIOMA OF [address] [place] SKIN AND SUBCUTA F03.90, Q78.3 Active 10/09/[address] XRAY Active 08/28/[address] Anemia Resolved Problem 10/17/2015 [facility] Arrhythmia Resolved Problem 10/17/2015 [facility] Hypoglycemic Resolved Problem 10/17/2015 [facility] Hypothyroidism Resolved Problem 10/17/2015 [facility] Migraines Resolved Problem 10/17/2015 [facility] Pituitary cyst Resolved Problem 10/17/2015 [facility] OTHER Active [facility] 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 [facility] CONGENITAL Medical DEFORMITIES [place] Medications Medication Details Route Status Patient Ordering Order Source Instructions Provider Date Midazolam 2 mg, Inactive 09/02/19 [facility] Route: IV, Medical ONCE, Center Dosing Weight 72.727, kg, Start date: 09/02/15 8:03:00 CDT, Stop date: 09/02/15 8:03:00 CDT lidocaine 2% 5 mL, Inactive 09/02/19 [facility] MPF Route: 16 Medical SUB-Q, Center Dosing Weight 72.727, kg, ONCE, Start date: 09/02/15 8:02:00 CDT, Stop date: 09/02/15 8:02:00 CDT Fentanyl 100 Inactive 09/02/19 [facility] microgram, 16 Medical Route: IV, Center ONCE, Dosing Weight 72.727, kg, Start date: 09/02/15 8:02:00 CDT, Stop date: 09/02/15 8:02:00 CDT Omnipaque 300 150 ml, Inactive 09/02/19 [facility] Route: 16 Medical INTRAARTER Center IAL, Dosing [...] CT EXAM: NM PET CT Head 10/13 [facility] Dementia Dementia /2016 - Medical This report was dictated by a Punch Operator/Fellow. I have personally reviewed the images as Center well as the Resident's interpretation and agree with the findings. DATE: 10/14/2015 Read by: Mino Chandler MD Resident: Mino Chandler MD Dictated Date/time: 10/14/15 13:34 Electronically Signed by: Brandon Mcanmara MD 10/14/15 15:43 FINAL REPORT INDICATION: 64-year-old male with dementia. COMPARISON: Cervical angiogram 09/02/2015 TECHNIQUE: Approximately 30 minutes after IV injection of 15.6 mCi FDG while patient was on interictal status, brain PET/CT imaging was obtained. The PET images were compared to the normal brain database from the [employer]. FINDINGS: When compared to the normal brain [...] left temporal lobe. Angiogram Angiogram PROCEDURE: 09/01 [facility] cervical cervical /2015 - Medical artery artery 1. Diagnostic Cerebral Angiogram: 6 vessel This report was dictated by a Punch Operator/Fellow. I have personally reviewed the images as [...] single wall micropuncture technique and a 5 Arabic sheath was placed. A 5 Arabic Angled [place] catheter was coaxially advanced with a 0.035 [...] procedure neurological examination was at the patient's [facility]. The patient was was then transferred to [...] Comments Source Systolic (mm Hg) 104 09/02/2015 [facility] Diastolic (mm Hg) 56 09/02/2015 [facility] Respitory Rate 16 09/02/2015 [facility] Respitory Rate 13 09/02/2015 [facility] Systolic (mm Hg) 104 09/02/2015 [facility] Diastolic (mm Hg) 58 09/02/2015 [facility] Systolic (mm Hg) 105 09/02/2015 [facility] Diastolic (mm Hg) 57 09/02/2015 [facility] Respitory Rate 6 09/02/2015 [facility] Height 172.72 cm 09/02/2015 [facility] BMI Calculated 24.38 09/02/2015 [facility] Weight 72.727 09/02/2015 [facility] Encounters Location Location Encounter Encounter Reason Attending ADM DC Status Source Details Type Number For Provider Date Date Visit Outpatient [id number] ERON 09/01 [facility] Bedded [id number] Eron 09/01 09/01 [facility] [place] /2015 [facility] Outpatient [id number] LOVE JONE 09/03 [facility] [place] Outpatient [id number] ERON 09/03 [facility] Outpatient [id number] Non 10/13 10/14 [facility] Physician /2015 [facility] Outpatient [id number] ERON 07/28 [facility] [place] Outpatient [id number] BEAU 09/09 [facility] [place] Outpatient [id number] BEAU 03/10 [facility] [place] Procedures Procedure Code Date Perfomer Comments Source Knee arthroplasty [id number] [facility] TURP - Transurethral [id number] [facility]
[2018-02-04 10:07] LABS: Protime INR 1.11
--- NOTE | 2018-02-04 10:14 | RAD REPORT ---
EXAM DESCRIPTION: CT - Stone Protocol - 02/04/2018 9:56 am CLINICAL HISTORY: Abdominal pain, abdominal distention COMPARISON: CT January 27 TECHNIQUE: Axial [address] imaging of the abdomen and pelvis was performed without IV contrast. No IV contrast was given because of allergy, abnormal renal function, patient refusal or physician re quest. Oral contrast was given. All CT scans are performed using dose optimization technique as appropriate and may include automated exposure control or mA/KV adjustment according to patient size. FINDINGS: Nodule in the left posterior lung base has not changed. No new infiltrate or pleural effus ion. Innumerable metastatic lesions throughout the liver parenchyma again noted. No gross change to liver over this short interval. Spleen and pancreas show no new finding. Gallbladder and biliary tree are a lso without suspicious finding. No hydronephrosis and no obstructing calculus. Patient has bilateral extrarenal pelves. No new findin g of the renal parenchyma. No significant adrenal finding. Isodense renal masses and pyelonephritis cannot be excluded in the absence of IV contrast. The previously detailed large lobulated soft tissue mass at the site of the prostate gland is again i dentified. Adjacent abnormal pelvic floor lymphadenopathy present. There is now all hyperdense materi al along the floor of the urinary bladder not present January 27. Developing over such a short interv al makes bladder hematoma most likely. Patient has a large diverticulum left lateral margin of the bl adder. Small mass in the left inguinal canal is most likely a metastatic lymph node. No dilated bowel loops or bowel wall thickening. No free air, free fluid or inflammatory stranding. P atient has sigmoid diverticulosis without diverticulitis. An acute GI process is not identified. Mod erate-size hiatal hernia is still present. No new bone finding. Bony metastatic lesions are evident. IMPRESSION: A 6 centimeter hyperdense focus has developed along the floor the urinary bladder since January 27 imaging. This is most likely a large hematoma within the bladder. Large lobulated mass at the prostate gland level has not changed. No change to the adjacent malignant lymphadenopathy. No gross change to the innumerable metastatic lesions throughout the liver parenchyma, bone mets or t he lung base pulmonary nodules. No ascites or acute abdominal finding. Full assessment is limited is the absence of IV contrast.
[2018-02-04 10:19] LABS: Absolute Lymphocytes (CBC) 1.2 K/uL (0.7-4.9); Absolute Neutrophil 8.1 K/uL (1.8-8.0); Basophils % 0.7 % (0-1.3); Eosinophils % 1.2 % (0-4.4); Lymphocytes % 11.5 % (15.3-44.8); MCH 30.3 pg (27.0-35.0); MCV 90.8 fL (80-100); MPV 8.8 fL (7.6-11.3); Monocytes % 9.4 % (3.3-12.3); RBC Red Blood Cell Count 3.96 M/uL (4.33-5.43)
[2018-02-04] MEDS ORDERED: ONDANSETRON 4 MG/2 ML VIAL ONE (10:28)
[2018-02-04] MEDS ORDERED: FENTANYL CITR 100 MCG/2 ML ONE ×3 (10:28→15:45)
[2018-02-04] MEDS ORDERED: NA CHLORIDE 0.9% 1,000 ML ONE ×2 (10:28→16:22)
[2018-02-04] MEDS ORDERED: CEFTRIAXONE/SWI 1gm 1 GM/10 ML SYR ONE (10:28)
[2018-02-04 10:31] LABS: Albumin 3.4 g/dL (3.4-5.0); Bilirubin Direct 0.2 mg/dL (0-0.2); Bilirubin Total 0.5 mg/dL (0.2-1.0); Magnesium 1.9 mg/dL (1.8-2.4); Protein, Total 6.7 g/dL (6.4-8.2); Troponin (Emerg Dept Use Only) 0.02 ng/mL (0.0-0.045)
--- NOTE | 2018-02-04 10:36 | RAD REPORT ---
EXAM DESCRIPTION: Ari[place] Single View02/04/2018 10:00 am CLINICAL HISTORY: Cough COMPARISON: January 27, 2018 FINDINGS: The lungs appear clear of acute infiltrate. The heart is moderately enlarged IMPRESSION: No acute abnormalities displayed
--- NOTE | 2018-02-04 10:56 | EDPHYS ---
Physician Documentation [facility] Name: Morales Conway Age: 67 yrs Sex: Male : 1950 Arrival Date: 02/04/2018 Time: 08:50 Bed 7 Private MD: ED Physician Alex Celis HPI: 02/04 09:36 This 67 yrs old Male presents to ER via Ambulatory with complaints of Blood kulwant In Urine. 09:36 The patient presents with urinary symptoms, dysuria, retention, hematuria. Onset: The kulwant symptoms/episode began/occurred 5 day(s) ago. Modifying factors: The symptoms are alleviated by nothing, the symptoms are aggravated by movement, pressure, urinating. Associated signs and symptoms: The patient has no apparent associated signs or symptoms. Severity of symptoms: At their worst the symptoms were moderate, in the emergency department the symptoms are unchanged. The patient has experienced similar episodes in the past, several times. Historical: - Allergies: :09 No Known Allergies; ss - Home Meds: 09:09 felodipine 5 mg Oral Tb24 1 tab once daily [Active]; levetiracetam 500 mg Oral tab 1 ss tab 2 times per day [Active]; Lupron Depot (4 Month) 30 mg intramuscular sykt every 4 mo [Active]; metoprolol succinate Oral [Active]; Synthroid Oral [Active]; Xarelto 10 mg Oral tab 1 tab once daily [Active]; Xgeva subcutaneous [Active]; Zetia 10 mg Oral tab 1 tab once daily [Active]; prednisone 5 mg Oral tab 1 tab 2 times per day [Active]; Zytiga 250 mg Oral tab 4 tabs once daily [Active]; calcium [Active]; - PMHx: 09:09 Atrial Fib; High Cholesterol; Hypertension; Hypothyroidism; PROSTATE CA; Seizures; ss - PSHx: 09:09 Knee surgery; nephrostomy tube (discontinued); ss - Immunization history:: Adult Immunizations up to date. - Social history:: Smoking status: Patient/guardian denies using tobacco. - Ebola Screening: : Patient denies exposure to infectious person Patient denies travel to an Ebola-affected area in the 21 days before illness onset. - Family history:: not pertinent. ROS: 09:36 Constitutional: Negative for fever, chills, and weight loss, Eyes: Negative for injury, kulwant pain, redness, and discharge, ENT: Negative for injury, pain, and discharge, Neck: Negative for injury, pain, and swelling, Cardiovascular: Negative for chest pain, palpitations, and edema, Respiratory: Negative for shortness of breath, cough, wheezing, and pleuritic chest pain, Back: Negative for injury and pain, MS/Extremity: Negative for injury and deformity, Skin: Negative for injury, rash, and discoloration, Neuro: Negative for headache, weakness, numbness, tingling, and seizure, Psych: Negative for depression, anxiety, suicide ideation, homicidal ideation, and hallucinations, Allergy/Immunology: Negative for hives, rash, and allergies, Endocrine: Negative for neck swelling, polydipsia, polyuria, polyphagia, and marked weight changes, Hematologic/Lymphatic: Negative for swollen nodes, abnormal bleeding, and unusual bruising. 09:36 Abdomen/GI: Positive for abdominal pain, of the suprapubic area, right lower quadrant and left lower quadrant. 09:36 : Positive for urinary symptoms, hematuria. Exam: 09:36 Constitutional: This is a well developed, well nourished patient who is awake, alert, kulwant and in no acute distress. Head/Face: Normocephalic, atraumatic. Eyes: Pupils equal round and reactive to light, extra-ocular motions intact. Lids and lashes normal. Conjunctiva and sclera are non-icteric and not injected. Cornea within normal limits. Periorbital areas with no swelling, redness, or edema. ENT: Nares patent. No nasal discharge, no septal abnormalities noted. Tympanic membranes are normal and external auditory canals are clear. Oropharynx with no redness, swelling, or masses, exudates, or evidence of obstruction, uvula midline. Mucous membranes moist. Neck: Trachea midline, no thyromegaly or masses palpated, and no cervical lymphadenopathy. Supple, full range of motion without nuchal rigidity, or vertebral point tenderness. No Meningismus. Chest/axilla: Normal chest wall appearance and motion. Nontender with no deformity. No lesions are appreciated. Cardiovascular: Regular rate and rhythm with a normal S1 and S2. No gallops, murmurs, or rubs. Normal PMI, no JVD. No pulse deficits. Respiratory: Lungs have equal breath sounds bilaterally, clear to auscultation and percussion. No rales, rhonchi or wheezes noted. No increased work of breathing, no retractions or nasal flaring. Back: No spinal tenderness. No costovertebral tenderness. Full range of motion. Skin: Warm, dry with normal turgor. Normal color with no rashes, no lesions, and no evidence of cellulitis. MS/ Extremity: Pulses equal, no cyanosis. Neurovascular intact. Full, normal range of motion. Neuro: Awake and alert, GCS 15, oriented to person, place, time, and situation. Cranial nerves II-XII grossly intact. Motor strength 5/5 in all extremities. Sensory grossly intact. Cerebellar exam normal. Normal gait. Psych: Awake, alert, with orientation to person, place and time. Behavior, mood, and affect are within normal limits. 09:36 Abdomen/GI: Inspection: distension, Bowel sounds: normal, Palpation: moderate abdominal tenderness, in the suprapubic area, right lower quadrant and left lower quadrant, Liver: no appreciated palpable abnormalities, Hernia: not appreciated. Vital Signs: 09:09 BP 149 / 96; Pulse 93; Resp 21; Temp 97.8; Pulse Ox 98% on R/A; Weight 83.01 kg; Height ss 5 ft. 8 in. (172.72 cm); Pain 3/10; 12:28 BP 126 / 94; Pulse 87; Resp 17 S; Temp 97.7; Pulse Ox 96% on R/A; sg 09:09 Body Mass Index 27.82 (83.01 kg, 172.72 cm) Procedures: 10:55 Patient tolerated well. straight and hematuria three way, not able to pass. [facility] MDM: 09:04 Patient medically screened. [facility] 09:38 Data reviewed: vital signs, nurses notes, lab test result(s), EKG, radiologic studies, [facility] CT scan, plain films. 02/04 09:36 Order name: Basic Metabolic Panel; Complete Time: 10:39 kulwant 02/04 09:36 Order name: CBC with Diff; Complete Time: 10:30 [facility] 02/04 09:36 Order name: LFT's; Complete Time: 10:39 [facility] 02/04 09:36 Order name: Magnesium; Complete Time: 10:39 [facility] 02/04 09:36 Order name: NT PRO-BNP; Complete Time: 10:39 [facility] 02/04 09:36 Order name: PT-INR; Complete Time: 10:30 [facility] 02/04 09:36 Order name: Troponin (emerg Dept Use Only); Complete Time: 10:39 [facility] 02/04 09:36 Order name: XRAY Chest (1 view); Complete Time: 10:39 [facility] 02/04 09:36 Order name: CT Stone Protocol; Complete Time: 10:30 [facility] 02/04 09:36 Order name: Lipase; Complete Time: 10:39 [facility] 02/04 09:36 Order name: Urine Culture [facility] 02/04 09:39 Order name: Type And Screen; Complete Time: 11:27 [facility] 02/04 10:54 Order name: ABO/RH no charge; Complete Time: 11:27 [facility] 02/04 09:36 Order name: EKG; Complete Time: 09:36 [facility] 02/04 09:36 Order name: Cardiac monitoring; Complete Time: 09:58 [facility] 02/04 09:36 Order name: EKG - Nurse/Tech [facility] 02/04 09:36 Order name: IV Saline Lock; Complete Time: 09:58 [facility] 02/04 09:36 Order name: Labs collected and sent; Complete Time: 09:58 [facility] 02/04 12:15 Order name: CONS Physician Consult [facility] 02/04 12:15 Order name: CONS Physician Consult [facility] 02/04 12:15 Order name: NPO [facility] 02/04 09:36 Order name: O2 Per Protocol; Complete Time: 09:58 [facility] 02/04 09:36 Order name: O2 Sat Monitoring; Complete Time: 09:58 [facility] 02/04 09:36 Order name: Bladder Scanner; Complete Time: 10:17 [facility] 02/04 11:54 Order name: NPO; Complete Time: 12:03 [facility] Administered Medications: 11:15 Drug: fentaNYL (PF) 25 mcg Route: IVP; Site: left antecubital; sg 12:10 Follow up: Response: No adverse reaction; Pain is decreased sg 11:15 Drug: Zofran 4 mg Route: IVP; Site: left antecubital; sg 11:15 Drug: Rocephin 1 grams Route: IV; Rate: calculated rate; Site: left antecubital; sg 11:54 CANCELLED (Duplicate Order): Potassium Effervescent Tablet 25 mEq PO once; dissolve in [facility] 4 ounces of water or juice 12:04 Not Given (Other Intervention Used): Rocephin - (cefTRIAXone) 1 grams IVPB once over 30 sg mins; (mix in 50 mL NS) 12:09 Not Given (Duplicate Order): NS 0.9% with KCl 20 mEq/L 1000 ml IV at per protocol kulwant continuous 12:30 Drug: Potassium Chloride 20 mEq Route: IV; Rate: per protocol; Site: left antecubital; sg 12:43 Not Given (Physician Discretion; urinary retention): NS 0.9% 1000 ml IV at 75 ml/hr sg continuous Disposition: 02/04/18 12:08 Hospitalization ordered by Braxton Caro for Observation. Preliminary diagnosis are Hematuria, Retention of urine - advanced prostrate cancer, Hypokalemia. - Bed requested for Telemetry/MedSurg (observation). - Status is Observation. ss - Condition is Fair. - Problem is new. - Symptoms have improved. UTI on Admission? No Signatures: Dispatcher [employer] EDBlue Elizalde RN RN sg Anderson, Corey, MD MD cha Smirch, Shelby, RN RN Comfort Garcia Corrections: (The following items were deleted from the chart) 11:32 10:54 02/04/2018 10:54 Transfer ordered to [facility]. 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 Reason for transfer: Higher level of care. Accepting physician is to [facility]. Condition is Fair. Problem is new. Symptoms have improved. kulwant 11:54 11:28 Potassium Effervescent Tablet 25 mEq PO once; dissolve in 4 ounces of water or kulwant juice ordered. kulwant 12:06 11:32 02/04/2018 10:54 Transfer ordered to [facility]. 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 Reason for transfer: Higher level of care. Accepting physician is to [facility]. Condition is Fair. Problem is new. Symptoms have improved. kulwant 13:21 12:08 Hospitalization Ordered by Braxton Caro DO for Observation. 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 Bed requested for Telemetry/MedSurg (observation). Status is Observation. Condition is Fair. Problem is new. Symptoms have improved. UTI on Admission? No. kulwant 14:36 13:21 02/04/2018 12:08 Hospitalization Ordered by Braxton Caro DO for Observation. 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 Bed requested for Telemetry/MedSurg (observation). Status is Observation. Condition is Fair. Problem is new. Symptoms have improved. UTI on Admission? No. eb
--- NOTE | 2018-02-04 10:56 | ER ---
Nurse's Notes [facility] Name: Morales Conway Age: 67 yrs Sex: Male : 1950 Arrival Date: 02/04/2018 Time: 08:50 Bed 7 Private MD: Diagnosis: Hematuria;Retention of urine-advanced prostrate cancer;Hypokalemia Presentation: 02/04 09:03 Presenting complaint: Patient states: reports that patient was seen a week ago for ss red blood with clots in urine, but has had pink urine since with improved symptoms. At 0200 this AM, pt reports the red blood with clots has come back and he is having trouble emptying his bladder. Transition of care: patient was not received from another setting of care. Onset of symptoms was January 28, 2018. Risk Assessment: Do you want to hurt yourself or someone else? Patient reports no desire to harm self or others. Initial Sepsis Screen: Does the patient meet any 2 criteria? RR > 20 per min. Does the patient have a suspected source of infection? Yes: Dysuria/Frequency/Urgency/UTI. Care prior to arrival: None. 09:03 Method Of Arrival: Ambulatory ss 09:03 Acuity: RUBIO 3 ss Historical: - Allergies: : No Known Allergies; ss - Home Meds: 09: felodipine 5 mg Oral Tb24 1 tab once daily [Active]; levetiracetam 500 mg Oral tab 1 ss tab 2 times per day [Active]; Lupron Depot (4 Month) 30 mg intramuscular sykt every 4 mo [Active]; metoprolol succinate Oral [Active]; Synthroid Oral [Active]; Xarelto 10 mg Oral tab 1 tab once daily [Active]; Xgeva subcutaneous [Active]; Zetia 10 mg Oral tab 1 tab once daily [Active]; prednisone 5 mg Oral tab 1 tab 2 times per day [Active]; Zytiga 250 mg Oral tab 4 tabs once daily [Active]; calcium [Active]; - PMHx: 09:09 Atrial Fib; High Cholesterol; Hypertension; Hypothyroidism; PROSTATE CA; Seizures; ss - PSHx: 09:09 Knee surgery; nephrostomy tube (discontinued); ss - Immunization history:: Adult Immunizations up to date. - Social history:: Smoking status: Patient/guardian denies using tobacco. - Ebola Screening: : Patient denies exposure to infectious person Patient denies travel to an Ebola-affected area in the 21 days before illness onset. - Family history:: not pertinent. Screenin:30 Abuse screen: Denies threats or abuse. Denies injuries from another. Nutritional sg screening: No deficits noted. Tuberculosis screening: No symptoms or risk factors identified. Fall Risk None identified. Assessment: 09:30 General: Appears in no apparent distress. uncomfortable, well groomed, well developed, sg well nourished, Behavior is calm, cooperative, appropriate for age. Pain: Complains of pain in suprapubic area Quality of pain is described as crampy. Neuro: No deficits noted. Cardiovascular: Capillary refill is brisk in bilateral fingers Patient's skin is warm and dry. Chest pain is denied. Respiratory: Airway is patent Respiratory effort is even, unlabored, Respiratory pattern is regular, symmetrical. GI: Abdomen is distended, Bowel sounds present X 4 quads. Reports tolerance of fluids, tolerance of food. : Last void was February 04, 2018. EENT: No signs and/or symptoms were reported regarding the EENT system. Derm: Skin is pink, warm \T\ dry. Musculoskeletal: No signs and/or symptoms reported regarding the musculoskeletal system. 09:30 : Reports inability to void, urinary frequency. sg 10:45 Reassessment: Patient appears in no apparent distress at this time. Patient and/or sg family updated on plan of care and expected duration. Pain level reassessed. Garcia verduzco at bedside attempting craft insertion, unsuccessful. I attempted craft insertion unsuccessful. notified, at bedside attempting craft insertion, unsuccessful, V/O obtained to d/c orders for IV fluids, awaiting transfer/urology consult at this time. 12:45 Reassessment: Patient appears in no apparent distress at this time. Patient and/or sg family updated on plan of care and expected duration. Pain level reassessed. awaiting OR at this time. 12:47 Reassessment: Patient appears in no apparent distress at this time. Patient and/or sg family updated on plan of care and expected duration. Pain level reassessed. pt evaluated by for admission to hospital, awaiting Urology consult at this time. Vital Signs: 09:09 BP 149 / 96; Pulse 93; Resp 21; Temp 97.8; Pulse Ox 98% on R/A; Weight 83.01 kg; Height ss 5 ft. 8 in. (172.72 cm); Pain 3/10; 12:28 BP 126 / 94; Pulse 87; Resp 17 S; Temp 97.7; Pulse Ox 96% on R/A; sg 09:09 Body Mass Index 27.82 (83.01 kg, 172.72 cm) ED Course: 08:50 Patient arrived in ED. rg4 09:04 Alex Celis MD is Attending Physician. kulwant 09:04 [place], LON is Primary Nurse. sg 09:05 Triage completed. ss 09:09 Arm band placed on right wrist. ss 09:51 CT completed. Patient tolerated procedure well. Patient moved to CT via stretcher. jg6 Patient moved to radiology. 09:56 CT Stone Protocol In Process Unspecified. EDMS 09:58 X-ray completed. Portable x-ray completed in exam room. Patient tolerated procedure jb2 well. 09:59 XRAY Chest (1 view) In Process Unspecified. EDMS 10:03 Initial lab(s) drawn, by nm, sent to lab. T\T\S collected, blood band applied to patient. jb1 Inserted saline lock: 22 gauge in left antecubital area, using aseptic technique. Blood collected. 10:10 EKG done, by upholstery tech. reviewed by Alex Celis MD. tc 10:57 Bladder scan completed. 288 mls. jb1 12:07 Braxton Caro DO is Hospitalizing Provider. [facility] Administered Medications: 11:15 Drug: fentaNYL (PF) 25 mcg Route: IVP; Site: left antecubital; sg 12:10 Follow up: Response: No adverse reaction; Pain is decreased sg 11:15 Drug: Zofran 4 mg Route: IVP; Site: left antecubital; sg 11:15 Drug: Rocephin 1 grams Route: IV; Rate: calculated rate; Site: left antecubital; sg 11:54 CANCELLED (Duplicate Order): Potassium Effervescent Tablet 25 mEq PO once; dissolve in kulwant 4 ounces of water or juice 12:04 Not Given (Other Intervention Used): Rocephin - (cefTRIAXone) 1 grams IVPB once over 30 sg mins; (mix in 50 mL NS) 12:09 Not Given (Duplicate Order): NS 0.9% with KCl 20 mEq/L 1000 ml IV at per protocol kulwant continuous 12:30 Drug: Potassium Chloride 20 mEq Route: IV; Rate: per protocol; Site: left antecubital; sg 12:43 Not Given (Physician Discretion; urinary retention): NS 0.9% 1000 ml IV at 75 ml/hr sg continuous Outcome: 10:54 ER care complete, transfer ordered by . kulwant 12:08 Decision to Hospitalize by Provider. kulwant 14:36 Patient left the ED. ss Signatures: Dispatcher [employer] EDMS Garcia Padilla jb1 [place], LON RN Alex Parks MD MD cha Buechter, Jesse jb2 Daksha Chapman RN RN Veronica Edwards, drying machine tender EKG Kimmy Villalba Jessica jg6
[2018-02-04] MEDS ORDERED: KCL 20 MEQ/100 mL IVPB 20 MEQ/100 ML BAG IV ONE (12:20)
[2018-02-04] MEDS ORDERED: ACETAMINOPHEN 500 MG TAB PO PRN (13:19)
[2018-02-04] MEDS ORDERED: SODIUM CHLORIDE 0.9% 10ML INJ IV PRN (13:19)
[2018-02-04] MEDS ORDERED: ONDANSETRON 4 MG/2 ML VIAL IV PRN (13:19)
[2018-02-04] MEDS ORDERED: ACETAMINOPHEN 650MG/RECT SUPP PR PRN (13:19)
[2018-02-04] MEDS ORDERED: MORPHINE 2 MG/ML SYR IV PRN (13:19)
[2018-02-04] MEDS ORDERED: NA CHLORIDE 0.9% 1,000 ML IV SCH (14:00)
--- OUTSIDE RECORDS SUMMARY | 2018-02-04 14:20 | XMS REPORT | Continuity of Care Document ---
:1950 Author Organization Interface Problems Problem Status Onset Classification Date Comments Source Date Reported D18.01 - Active 07/11/19 [facility] [address] [place] SKIN AND SUBCUTA F03.90, Q78.3 Active 10/09/[address] XRAY Active 08/28/[address] Anemia Resolved Problem 10/17/2015 [facility] Arrhythmia Resolved Problem 10/17/2015 [facility] Hypoglycemic Resolved Problem 10/17/2015 [facility] Hypothyroidism Resolved Problem 10/17/2015 [facility] Migraines Resolved Problem 10/17/2015 [facility] Pituitary cyst Resolved Problem 10/17/2015 [facility] OTHER Active [facility] 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 [facility] CONGENITAL Medical DEFORMITIES [place] Medications Medication Details Route Status Patient Ordering Order Source Instructions Provider Date Midazolam 2 mg, Inactive 09/02/19 [facility] Route: IV, Medical ONCE, Center Dosing Weight 72.727, kg, Start date: 09/02/15 8:03:00 CDT, Stop date: 09/02/15 8:03:00 CDT lidocaine 2% 5 mL, Inactive 09/02/19 [facility] MPF Route: 16 Medical SUB-Q, Center Dosing Weight 72.727, kg, ONCE, Start date: 09/02/15 8:02:00 CDT, Stop date: 09/02/15 8:02:00 CDT Fentanyl 100 Inactive 09/02/19 [facility] microgram, 16 Medical Route: IV, Center ONCE, Dosing Weight 72.727, kg, Start date: 09/02/15 8:02:00 CDT, Stop date: 09/02/15 8:02:00 CDT Omnipaque 300 150 ml, Inactive 09/02/19 [facility] Route: 16 Medical INTRAARTER Center IAL, Dosing [...] CT EXAM: NM PET CT Head 10/13 [facility] Dementia Dementia /2016 - Medical This report was dictated by a Curriculum Supervisor/Fellow. I have personally reviewed the images as [...] to the normal brain database from the [employer]. FINDINGS: When compared to the normal brain [...] left temporal lobe. Angiogram Angiogram PROCEDURE: 09/01 [facility] cervical cervical /2015 - Medical artery artery 1. Diagnostic Cerebral Angiogram: 6 vessel This report was dictated by a Curriculum Supervisor/Fellow. I have personally reviewed the images as [...] single wall micropuncture technique and a 5 Welsh sheath was placed. A 5 Welsh Angled [place] catheter was coaxially advanced with a 0.035 [...] procedure neurological examination was at the patient's [facility]. The patient was was then transferred to [...] Comments Source Systolic (mm Hg) 104 09/02/2015 [facility] Diastolic (mm Hg) 56 09/02/2015 [facility] Respitory Rate 16 09/02/2015 [facility] Respitory Rate 13 09/02/2015 [facility] Systolic (mm Hg) 104 09/02/2015 [facility] Diastolic (mm Hg) 58 09/02/2015 [facility] Systolic (mm Hg) 105 09/02/2015 [facility] Diastolic (mm Hg) 57 09/02/2015 [facility] Respitory Rate 6 09/02/2015 [facility] Height 172.72 cm 09/02/2015 [facility] BMI Calculated 24.38 09/02/2015 [facility] Weight 72.727 09/02/2015 [facility] Encounters Location Location Encounter Encounter Reason Attending ADM DC Status Source Details Type Number For Provider Date Date Visit Outpatient [id number] ERON 09/01 [facility] Bedded [id number] Eron 09/01 09/01 [facility]patient [place] /2015 [facility] Outpatient [id number] LOVE JONE 09/03 [facility] [place] Outpatient [id number] ERON 09/03 [facility] Outpatient [id number] Non 10/13 10/14 [facility] Physician /2015 [facility] Outpatient [id number] ERON 07/28 [facility] [place] Outpatient [id number] BEAU 09/09 [facility] [place] Outpatient [id number] BEAU 03/10 [facility] [place] Procedures Procedure Code Date Perfomer Comments Source Knee arthroplasty [id number] [facility] TURP - Transurethral [id number] [facility]
[2018-02-04] MEDS ORDERED: LIDOCAINE 2% MPF 5 ML VIAL ONE (14:32)
[2018-02-04] MEDS ORDERED: PROPOFOL 200 MG/20 ML VIAL IV ONE (14:32)
[2018-02-04] MEDS ORDERED: ONDANSETRON HCL 40 MG/20 ML VIAL ONE (14:33)
[2018-02-04] MEDS ORDERED: ROCURONIUM 50 MG/5 ML VIAL IV ONE (14:50)
[2018-02-04] MEDS ORDERED: SUCCINYLCHOLINE 20 MG/ML (10 ML) IV ONE (14:51)
--- NOTE | 2018-02-04 15:01 | P.HP ---
Certification for Inpatient Patient admitted to: Observation With expected LOS: <2 Midnights Patient will require the following post-hospital care: None Practitioner: I am a practitioner with admitting privileges, knowledge of patient current condition, hospital course, and medical plan of care. Services: Services provided to patient in accordance with Admission requirements found in Title 42 Section 412.3 of the Code of Federal Regulations Patient History Date of Service: 02/04/18 Primary Care Provider: Barber Yang NP; Cardiology-Dr. Rao; Nephrology-Dr. Green Reason for admission: Hematuria History of Present Illness: 67-year-old male presented to the emergency room with hematuria. Patient with history of stage IV prostate cancer, atrial fibrillation on chronic anti coagulation therapy, chronic renal disease. Patient has been reporting some increasing hematuria over the last several days. It started off a speak but now read. He also reports some urgency and difficulty urinating. noted thick blood today. Patient is seen at [facility] for his stage IV disease. Patient came to the ER for further evaluation. In the ER patient evaluated. White count 10.4, hemoglobin 12. Sodium 138. Potassium 3.0. LFTs were slightly elevated. BUN of 24, creatinine 1.5 with a GFR 46. BNP 3207. Troponin 0.02. CT scan shows hematoma in the bladder. Liver mets also identified. In the ER the tried to put in a Gagnon catheter but was not successful. Urology was consulted. Patient admitted for further evaluation. In the ER patient stable. Pain noted but controlled. Patient with history of stage IV prostate cancer with metastasis to the bone and liver. Patient is taking Xarelto 10 mg daily for atrial fibrillation. Patient with chronic renal disease. He also reports a history of intracranial bleed in 2016. He is on anti seizure medication for this. Allergies No Known Allergies Allergy (Verified 10/03/14 15:21) Home medications list reviewed: Yes Home Medications: Aspirin [Aspirin EC] 81 mg PO DAILY 09/06/14 Ezetimibe [Zetia] 10 mg PO DAILY 09/06/14 Felodipine [Plendil] 5 mg PO BID 09/06/14 Finasteride [Proscar*] 5 mg PO DAILY 09/06/14 Levothyroxine [Synthroid] 112 mcg PO [id number] 09/06/14 Mv-Mn/Iron/FA/Herbal Cmplx#190 [Vitamin D3 Complete Caplet] 1 each PO DAILY 02/10 Tamsulosin [Flomax] 0.4 mg PO BEDTIME 09/06/14 - Past Medical/Surgical History Diabetic: No -: Stage IV prostate cancer with mets to bone and liver -: Atrial fibrillation on chronic anti coagulation therapy -: Hypertension -: Hypothyroidism -: Hyperlipidemia -: History intracranial bleed on anti seizure med -: Nephrostomy tube right side Psychosocial/ Personal History: Patient is of 35 years. He has 2 children. He is retired. - Family History Father -: Cancer (Bladder cancer) Mother -: Cancer (Breast cancer) - Social History Smoking Status: Never smoker Alcohol use: No CD- Drugs: No Caffeine use: Yes Place of Residence: Home Review of Systems General: Weakness, Malaise, As per HPI Eyes: Unremarkable ENT: Unremarkable Respiratory: Unremarkable Cardiovascular: Unremarkable Gastrointestinal: As per HPI (Pelvic pain) Genitourinary: Urgency, Hematuria, Retention, As per HPI Musculoskeletal: Unremarkable Integumentary: Unremarkable Neurological: Unremarkable Lymphatics: Unremarkable Physical Examination - Physical Exam General: Alert, In no apparent distress, Oriented x3, Cooperative HEENT: Atraumatic, Normocephalic, PERRLA, Other (Dry mucous membranes) Neck: Supple Respiratory: Clear to auscultation bilaterally, Normal air movement Cardiovascular: Irregular heart rate/rhythm (Atrial fibrillation, rate controlled) Gastrointestinal: Normal bowel sounds, Soft and benign, Non-distended, No masses , No rebound, No guarding, Tenderness Musculoskeletal: No erythema, No tenderness, No warmth Integumentary: No tenderness/swelling, No erythema, No warmth, No cyanosis Neurological: Normal speech, Normal strength at 5/5 x4 extr, Normal tone, Normal affect - Studies Laboratory Data (last 24 hrs) 02/04/18 09:50: PT 13.1 H, INR 1.11 02/04/18 09:50: WBC 10.4, Hgb 12.0 L, Hct 36.0 L, Plt Count 197 02/04/18 09:50: Sodium 139, Potassium 3.0 L, BUN 24 H, Creatinine 1.50 H, Glucose 90, Magnesium 1.9, Total Bilirubin 0.5, AST 78 H, ALT 80 H, Alkaline Phosphatase 182 H, Lipase 228 Assessment and Plan - Plan Impression: Hematuria with obstructive uropathy with noted difficulty placement of Gagnon catheter secondary to bladder hematoma complicated with stage IV prostate cancer with metastasis to the liver and bone Acute on chronic renal disease, stage II Atrial fibrillation on chronic anti coagulation therapy Hypertension Hyperlipidemia History of intracranial bleed 2016 now on anti seizure medication Hypothyroidism Elevated liver function likely related to liver metastasis Plan: Hematuria with obstructive uropathy with noted difficulty placement of Gagnon catheter secondary to bladder hematoma complicated with stage IV prostate cancer with metastasis to the liver and bone: Patient currently NPO this time. Urology consulted. Urology plans for urological intervention for placement of catheter. Patient will likely require removal of a hematoma. Patient will likely also require bladder irrigation. Will monitor hematuria. Will hold anti coagulation therapy at this time. Await findings from urology. Advanced directives address in detail. Patient wishes to be DNR. Patient understands this in detail. Patient has follow up with oncology at [facility] within the next month. Acute on chronic renal disease, stage II: Continue with IV fluids slowly. Will monitor electrolytes. Nephrology consulted to further assess and monitor. Atrial fibrillation on chronic anti coagulation therapy: Will hold anti coagulation therapy at this time due to hematuria. Cardiology consulted for recommendations on whether to discontinue anti coagulation therapy indefinitely. Case discussed at length with patient and . They understand the risks and benefits of both. Hypertension: Will review and restart home medication. Hyperlipidemia: Will hold medication due to elevated liver function History of intracranial bleed 2016 now on anti seizure medication: Will need to continue with home medication Hypothyroidism: Will need to review and restart home medication Elevated liver function likely related to liver metastasis: Will hold statin medication. Will monitor function closely. Discharge Plan: Home Plan to discharge in: 48 Hours - Advance Directives Does patient have a Living Will: No Does patient have a Durable POA for Healthcare: No - Code Status/Comfort Care Code Status Assessed: Yes (Patient is DNR) Time Spent Managing Pts Care (In Minutes): 55
[2018-02-04] MEDS ORDERED: GLYCOPYRROLATE 0.2 MG/ML SYR ONE (15:09)
[2018-02-04] MEDS ORDERED: NEOSTIGMINE 1 MG/ML -5 ML SYRINGE ONE (15:25)
[2018-02-04] MEDS ORDERED: CODEINE 30MG/APAP 300MG TAB PO PRN (16:07)
[2018-02-04] MEDS ORDERED: MAGNESIUM HYDROXIDE 8% 30 ML PO PRN (16:07)
--- NOTE | 2018-02-04 16:15 | RAD REPORT ---
EXAM DESCRIPTION: RAD - Urethrocystogrphy Retrograde - 02/04/2018 4:06 pm FINDINGS: Three cortical fluoroscopic images obtained during assisted removal of bladder hematoma. N o suspicious or unexpected finding. Fluoro time was 2 seconds with calculated dose 0.8 mGy.
[2018-02-04 17:11] VITALS: BMI 27.8
--- NOTE | 2018-02-04 17:52 | CON ---
History Of Present Illness: This is a 67-year-old gentleman with stage IV prostate cancer. He is on Zytiga and prednisone at [facility]. He was here in the ER for gross hematuria last week and he checked out to go to [facility] , but never went. He called his doctor instead. I gave him an appointment for 02/15. This morning he woke up with urinary retention. He is in pain. He had breakfast at 9 a.m. Now, he needs an emergency Gagnon. His last PSA was 0.4. He had a history of a nephrostomy tube placed for kidney cyst at [facility]. I do not have any records on this gentleman. He is an [facility] patient. They have refused to take him. They said they have no beds. He cannot go there. His doctor will not talk to us. We can only do the best I can do on this situation. I believe he needs cystoscopy, clot evacuation, possible fulguration, Gagnon placement. We will talk to Anesthesia about doing emergently. Allergies: NO KNOWN DRUG ALLERGIES. Home Medications: Felodipine 5 mg, levetiracetam 500 mg, Lupron q.4 months IM, Synthroid, Xarelto 10 mg a day, Zytiga subcutaneous, Zetia, prednisone 5 mg. Past Medical History: AFib, high cholesterol, hypertension, hypothyroidism, prostate cancer stage IV, seizures. Past Surgical History: Knee surgery, nephrostomy tube. Immunizations: Up-to-date. Social History: No smoking. Ebola screening negative. Review of Systems: Ten-point review of systems is otherwise negative. Physical Examination: Vital Signs: BP 149/96, pulse 93, respirations 21, temperature 97.8, pulse ox 98, weight 83 kg. Height 5 feet 8 inches. Pain level 2/10. HEENT: Atraumatic, normocephalic. Lungs: Clear. Heart: Regular rate and rhythm. Abdomen: Positive for suprapubic tenderness, distended bladder. Extremities: Normal range of motion. : Testicles normal. Phallus normal. MATTHEW deferred. Diagnostic Data: Laboratories reviewed. CT reviewed. Assessment: A 67-year-old gentleman with clot retention. He is on Xarelto, stage IV prostate cancer. The patient is an [facility] patient, unable to go to [facility]. He needs a Gagnon clot evacuation as soon as possible. We will discuss with Anesthesia about the risk of doing this gentleman. TIFFANY/ROBB Voice ID: [id number] Report ID: [id number] MTDD
--- NOTE | 2018-02-04 18:47 | EKG ---
Test Date: 2018-02-04 Test Time: 10:04:49 Site Acquisition Specialist: LUICLLE MEASUREMENT RESULTS: Intervals: Rate: 81 IL: QRSD: 88 QT: 400 QTc: 464 [place]: P: IL: QRS: 8 T: 232 INTERPRETIVE STATEMENTS: Atrial fibrillation Voltage criteria for left ventricular hypertrophy Marked ST abnormality, possible inferior subendocardial injury Abnormal ECG Compared to ECG 01/27/2018 17:08:54 ST (T wave) deviation now present Electronically Signed On 02-04-18 18:44:56 DIVISION HEAD by Frantz Donnelly
[2018-02-04] MEDS: CEPHALEXIN 250 MG CAP PO SCH (22:31)
[2018-02-04] MEDS: SODIUM CHL 0.9% IRR SOLN 2000 ML IRR SCH (22:40)
[2018-02-04] MEDS ORDERED: SODIUM CHL 0.9% IRR SOLN 2000 ML IRR SCH (23:00)
[2018-02-05] MEDS ORDERED: NACL 0.9% IRR SOLN 2,000 ML IRR ONE (00:19)
[2018-02-05] MEDS: SODIUM CHL 0.9% IRR SOLN 2000 ML IRR SCH ×7 (00:57→22:04)
[2018-02-05] MEDS ORDERED: DIPHENOX/ATROP SULF 1 TAB PO PRN (03:20)
--- NOTE | 2018-02-05 03:22 | OP ---
Surgeon: Ene Rivera MD Anesthesiologist: Dr. Corona. Preoperative Diagnoses: Gross hematuria, urinary retention, and unable to pass Gagnon catheter. Postoperative Diagnoses: Gross hematuria, urinary retention, unable to pass Gagnon catheter, urethral stricture, inflamed prostatic urethra, difficult cystoscopy, and bladder was not entirely clear due to poor vision. Procedures Performed: Cystoscopy, urethral dilation up to 20-Cambodian with S dilators, cysto DVIU and bulbar stricture, complex Gagnon catheter placement, 22, 3-way hematuria catheter over wire, and bladd er irrigation. Anesthesia: General endotracheal intubation. Estimated Blood Loss: 25-30 cc. Replacement: See record. Path Specimen: None. Complication: None. Drains: Gagnon catheter as mentioned above. Findings: Very difficult to reach a very tight strictured urethra, bulbar stricture, and meatal stri cture. False passage seen in the bulbar urethra. DVIU performed to open up this area. Prostatic ur ethra very rigid and narrowed. Difficult cystoscopy. Urine was very bloody. Unable to clear bladde r. Bladder was not entirely cleared cystoscopically. The patient may need another cysto at a later date. However, we did place a hematuria catheter over a wire to irrigate. Once things are cleared a nd things settle down in a week or 2, he can be scoped at [facility] under more controlled situation . Indication: Pleasant gentleman, unfortunate with stage IV prostate cancer is in chemo at [facility] . He has been having gross hematuria for a week now, came to the ER last week and was sent to [facility], but never got an appointment until sometime in the future, came back today, unable to void fro m the time he woke up this morning with bloody urine. He is on Xarelto for seizure disorder. ER cou ld not place a catheter; therefore, we took him to the operating room emergently. He was given all t he general information, alternatives, and risks and wishes to proceed. Description Of Procedure: We started cystoscopy with a 21-Cambodian. It was very tight to pass per pen ile urethra. We switched to 17-Cambodian, able to get to the bulbar urethra. A stricture was seen. Th ere was gross blood coming from the area and visibility was very poor. One could not see very well. We then placed a 0.035 Bentson guidewire into the bladder, confirmed on the fluoroscopy, and we dila lizz with S dilators up to 20-Cambodian. This could not accommodate the 22-Cambodian resectoscope. We had to incise a little stricture at a membranous urethra, but the prostatic urethra was very rigid. The scope could not navigate area and could not get in. This was too tight. After several attempts of t rying and DVIU in the area, we thus passed the 22, 3-way hematuria catheter over the wire into the bl adder, confirmed with good drainage. We irrigated the bladder until it was light pink and started no rmal saline CBI. We will go to the floor, recommend keeping this catheter at least for a week. We w ill keep him on antibiotics, pain medication, and antispasmodic. He is to follow up at [facility]. I will be out of town for the next 2 weeks. TIFFANY/ROBB Voice ID: [id number] Report ID: [id number]
[2018-02-05] MEDS: LEVOTHYROXINE SOD 0.088 MG TAB PO SCH (05:05)
[2018-02-05 05:08] LABS: Absolute Lymphocytes (CBC) 1.2 K/uL (0.7-4.9); Absolute Neutrophil 8.6 K/uL (1.8-8.0); Basophils % 0.5 % (0-1.3); Eosinophils % 1.9 % (0-4.4); Hematocrit 31.2 % (39.6-49.0); Lymphocytes % 10.5 % (15.3-44.8); MCV 89.7 fL (80-100); MPV 8.8 fL (7.6-11.3); RBC Red Blood Cell Count 3.48 M/uL (4.33-5.43)
[2018-02-05 05:24] LABS: Albumin 2.7 g/dL (3.4-5.0); Bilirubin Total 0.7 mg/dL (0.2-1.0); Magnesium 1.8 mg/dL (1.8-2.4); Potassium 3.4 mmol/L (3.5-5.1); Protein, Total 5.4 g/dL (6.4-8.2)
[2018-02-05] MEDS ORDERED: POTASSIUM 25 MEQ EFFERV TAB PO ONE (06:00)
[2018-02-05] MEDS ORDERED: MAGNESIUM SULFATE 1 gm IVPB 1 GM/100 ML BAG IV ONE (06:00)
[2018-02-05] MEDS: NA CHLORIDE 0.9% 1,000 ML IV SCH ×2 (06:15→20:59)
[2018-02-05] MEDS ORDERED: PANTOPRAZOLE 40 MG INJ IVP SCH (09:00)
[2018-02-05] MEDS ORDERED: predniSONE 5 MG TAB PO SCH (09:00)
[2018-02-05] MEDS ORDERED: RIVAROXABAN 15 MG TABLET PO SCH (09:00)
[2018-02-05] MEDS ORDERED: ABIRATERONE ACETATE 1000 MG PO SCH (09:00)
[2018-02-05] MEDS: FELODIPINE 5 MG TAB PO SCH ×2 (09:31→20:58)
[2018-02-05] MEDS: CEPHALEXIN 250 MG CAP PO SCH ×2 (09:31→20:54)
[2018-02-05] MEDS: levETIRAcetam 500 MG TAB PO SCH ×2 (09:31→20:54)
[2018-02-05] MEDS: OXYBUTYNIN ER 5 MG TAB PO SCH (09:31)
[2018-02-05] MEDS: EZETIMIBE 10 MG TAB PO SCH (09:32)
[2018-02-05] MEDS: METOPROLOL XL 25 MG TAB PO SCH (09:32)
--- NOTE | 2018-02-05 11:45 | P.PN ---
Subjective Date of Service: 02/05/18 Primary Care Provider: Barber Yang NP; Cardiology-Dr. Rao; Nephrology-Dr. Green Chief Complaint: Hematuria Subjective: Improving Physical Examination - Vital Signs Temperature: 97.7 F Blood Pressure: 117/59 Pulse: 104 Respirations: 16 Pulse Ox (%): 94 - Physical Exam General: Alert, In no apparent distress, Oriented x3, Cooperative HEENT: Atraumatic Neck: Supple Respiratory: Clear to auscultation bilaterally, Normal air movement Cardiovascular: Normal pulses, Regular rate/rhythm Gastrointestinal: Normal bowel sounds, Soft and benign, Non-distended, No tenderness, No masses, No rebound, No guarding Musculoskeletal: No tenderness, No warmth Neurological: Normal speech, Normal strength at 5/5 x4 extr, Normal tone, Normal affect Urinary: Gagnon catheter - Studies Medications List Reviewed: Yes Assessment & Plan Discharge Plan: Home Plan to discharge in: 24 Hours Physician Review Additional Text: Impression: Hematuria with obstructive uropathy with noted difficulty placement of Gagnon catheter secondary to bladder hematoma complicated with stage IV prostate cancer with metastasis to the liver and bone status post cystoscopy, urethral dilation, complex Gagnon catheter placement Acute on chronic renal disease, stage II Atrial fibrillation on chronic anti coagulation therapy Hypertension Hyperlipidemia GERD History of intracranial bleed 2016 now on anti seizure medication Hypothyroidism Elevated liver function likely related to liver metastasis Plan: Hematuria with obstructive uropathy with noted difficulty placement of Gagnon catheter secondary to bladder hematoma complicated with stage IV prostate cancer with metastasis to the liver and bone status post cystoscopy, urethral dilation, complex Gagnon catheter placement: Cystoscopy done yesterday. Urethral dilation done. Complex Gagnon catheter placed. Patient currently with bladder irrigation system. Patient on antibiotic therapy. Will have physical therapy assess ambulation. Consider discharge if okay with urology. Patient will need to continue with Gagnon catheter. Patient has follow up at [facility]. Cardiology recommends to hold chronic anti coagulation therapy at this time due to hematuria. Patient will likely require home health with physical therapy at discharge. Acute on chronic renal disease, stage II: Continue with IV fluids slowly. Improvement in electrolytes noted. Nephrology consulted to further assess and monitor. Atrial fibrillation on chronic anti coagulation therapy: Will continued to hold anti coagulation therapy at this time due to hematuria. Cardiology recommends to discontinue anti coagulation therapy due to recent events. This can be further addressed as an outpatient by Cardiology Hypertension: Will continue with medication Hyperlipidemia: Will hold medication due to elevated liver function History of intracranial bleed 2016 now on anti seizure medication: Will need to continue with home medication-Keppra Hypothyroidism: Will continue with home medication-Levoxyl Elevated liver function likely related to liver metastasis: Will hold statin medication. Will monitor function closely. Time Spent Managing Pts Care (In Minutes): 55
--- NOTE | 2018-02-05 13:04 | PN ---
Subjective: The patient feels well. Objective: Urine is clear, just on the dark side. No gross hematuria. Minimal CBI going. Plan: To plug the third port. Send the patient home. Follow up with his urologist at [facility]. Given him prescriptions for Macrobid 100 daily with food for prevention #21, Ultram 50 mg 1 p.o., q. 6 hours p.r.n. pain #24, Ditropan 5 mg regular strength 1 p.o. t.i.d. p.r.n. frequency #20, and follo w up with his urologist. TIFFANY/ROBB Voice ID: [id number] Report ID: [id number]
[2018-02-05 14:04] LABS: Urine Appearance CLOUDY; Urine Bilirubin NEGATIVE (NEG); Urine Blood 3+ (NEG); Urine Color RED; Urine Glucose NEGATIVE (NEG); Urine Protein TRACE (NEG); Urine Specific Gravity <=1.005 (1.005-1.030); Urine Urobilinogen 0.2 mg/dL (0.2-1.0); Urine pH 5.5 (5.0-7.0)
[2018-02-05 14:12] LABS: Urine Microscopic Reflex ORDER UMIC
[2018-02-05 14:14] LABS: Urine Bacteria <20 /HPF (NONE SEEN); Urine Culture Reflex Order REFLEXED; Urine RBC >50 /HPF (NONE SEEN)
[2018-02-05] MEDS: ENSURE HIGH PROTEIN 237 ML CAN PO SCH (20:53)
[2018-02-06] MEDS: LEVOTHYROXINE SOD 0.088 MG TAB PO SCH (05:13)
[2018-02-06 05:18] LABS: Absolute Lymphocytes (CBC) 1.1 K/uL (0.7-4.9); Absolute Monocytes 0.8 K/uL (0.1-1.3); Absolute Neutrophil 7.9 K/uL (1.8-8.0); Basophils % 0.6 % (0-1.3); Eosinophils % 2.5 % (0-4.4); Hematocrit 29.9 % (39.6-49.0); Lymphocytes % 10.7 % (15.3-44.8); MCH 30.3 pg (27.0-35.0); MCV 90.1 fL (80-100); Monocytes % 8.1 % (3.3-12.3); RBC Red Blood Cell Count 3.32 M/uL (4.33-5.43)
[2018-02-06 05:43] LABS: Albumin 2.4 g/dL (3.4-5.0); Bilirubin Total 0.6 mg/dL (0.2-1.0); Potassium 3.6 mmol/L (3.5-5.1); Protein, Total 5.1 g/dL (6.4-8.2)
[2018-02-06] MEDS ORDERED: POTASSIUM CL SA 10 MEQ TAB PO ONE (06:11)
[2018-02-06] MEDS: ENSURE HIGH PROTEIN 237 ML CAN PO SCH (08:47)
[2018-02-06] MEDS: OXYBUTYNIN ER 5 MG TAB PO SCH (08:47)
[2018-02-06] MEDS: METOPROLOL XL 25 MG TAB PO SCH (08:48)
[2018-02-06] MEDS: FELODIPINE 5 MG TAB PO SCH (08:48)
[2018-02-06] MEDS: CEPHALEXIN 250 MG CAP PO SCH (08:48)
[2018-02-06] MEDS: levETIRAcetam 500 MG TAB PO SCH (08:48)
[2018-02-06] MEDS: EZETIMIBE 10 MG TAB PO SCH (08:48)
--- NOTE | 2018-02-06 11:51 | PN ---
Subjective: The patient is doing well and is stable. Objective: Vital Signs: Afebrile. Vital signs stable. Laboratory Data: H and H are stable. Urine is clear. Assessment: Status post cystoscopy. Difficult Gagnon placement. Direct vision internal urethrotomy. The patient has stage IV prostate cancer, on chemotherapy. Plan: The patient can go home. Prescriptions were written. He is going to follow up with his urolo gist. He may resume his blood thinner as needed. If the urine bleeds, he will need to stop. TIFFANY/ROBB Voice ID: [id number] Report ID: [id number]
[2018-02-06 12:22] VITALS: O2SAT 96
[2018-02-06 12:47] VITALS: BP 91/52; TEMP 97.5
--- NOTE | 2018-02-06 14:20 | P.DS ---
Admission Date: 02/04/18 Discharge Date: 02/06/18 Primary Care Provider: Barber Yang NP; Cardiology-Dr. Rao; Nephrology-Dr. Green Disposition: ROUTINE DISCHARGE Discharge Condition: GOOD Reason for Admission: Hematuria Consultations: Dr. Rivera Procedures: Procedures Performed: Cystoscopy, urethral dilation up to 20-Croatian with S dilators, cysto DVIU and bulbar stricture, complex Gagnon catheter placement, 22 , 3-way hematuria catheter over wire, and bladder irrigation. Brief History of Present Illness: Patient admitted with hematuria Hospital Course: Patient is 67 years of age with prostatic cancer followed up by [facility] he was admitted with hematuria and unable to pass urine patient was taken to the operating room and a Gagnon catheter was placed he still has some hematuria to continually flushes Gagnon catheter as per instructions from Dr. Rivera patient to hold his anticoagulants and to discuss and follow up with [facility] this coming week patient's hemoglobin was stable At the time of discharge he was alert oriented responsive cooperative vital signs all stable chest clear abdomen soft patient in no discomfort present home medications reconciled patient has been instructed to hold his anticoagulants for now Vital Signs/Physical Exam: Temp Pulse Resp BP Pulse Ox 97.5 F 87 18 91/52 L 93 02/06/18 12:00 02/06/18 12:00 02/06/18 12:00 02/06/18 12:00 02/06/18 12:00 Laboratory Data at Discharge: WBC 10.1 K/uL (4.3-10.9) 02/06/18 04:14 Hgb 10.1 g/dL (13.6-17.9) L 02/06/18 04:14 Hct 29.9 % (39.6-49.0) L 02/06/18 04:14 Plt Count 153 K/uL (152-406) 02/06/18 04:14 PT 13.1 SECONDS (9.5-12.5) H 02/04/18 09:50 INR 1.11 02/04/18 09:50 Sodium 142 mmol/L (136-145) 02/06/18 04:14 Potassium 3.6 mmol/L (3.5-5.1) 02/06/18 04:14 BUN 15 mg/dL (7-18) 02/06/18 04:14 Creatinine 1.00 mg/dL (0.55-1.3) 02/06/18 04:14 Glucose 100 mg/dL (74-106) 02/06/18 04:14 Magnesium 2.0 mg/dL (1.8-2.4) 02/06/18 04:14 Total Bilirubin 0.6 mg/dL (0.2-1.0) 02/06/18 04:14 AST 70 U/L (15-37) H 02/06/18 04:14 ALT 53 U/L (12-78) 02/06/18 04:14 Alkaline Phosphatase 152 U/L (45-117) H 02/06/18 04:14 Lipase 228 U/L (73-393) 02/04/18 09:50 Home Medications: Abiraterone Acetate [Zytiga] 1,000 mg PO DAILY 02/04/18 Diphenoxylate HCl/Atropine [Diphenoxylate-Atrop 2.5-0.025] 2 tab PO DAILY PRN Ezetimibe 10 mg PO DAILY 02/04/18 Felodipine [Plendil] 5 mg PO BID 02/04/18 Levothyroxine [Synthroid*] 88 mcg PO DAILY 02/04/18 Metoprolol Succinate [Toprol Xl] 25 mg PO DAILY 02/04/18 levETIRAcetam [Levetiracetam] 500 mg PO BID 02/04/18 predniSONE [Prednisone*] 5 mg PO BID 02/04/18 Nitrofuran Macro [Macrobid] 100 mg PO DAILY #21 cap 02/06/18 Oxybutynin Chloride [Ditropan] 5 mg PO TID PRN #20 tab 02/06/18 traMADol HCL [Ultram] 50 mg PO Q6H PRN #24 tab 02/06/18 New Medications: Nitrofuran Macro [Macrobid] 100 mg PO DAILY #21 cap Oxybutynin Chloride [Ditropan] 5 mg PO TID PRN #20 tab PRN Reason: Frequency traMADol HCL [Ultram] 50 mg PO Q6H PRN #24 tab PRN Reason: Pain Patient Discharge Instructions: Patient to check with [facility] when to resume his Xarelto please instruct the to flush the urinary catheter as instructed by Dr. Rivera Diet: Regular Activity: Ad roshan
--- NOTE | 2018-02-06 22:15 | CON ---
Date of Consultation: 02/04/2018 Reason For Consultation: Hematuria, on Xarelto. History Of Present Illness: Mr. Conway is 67. He is a DNR, has atrial fibrillation for which he daniel es Xarelto. Has a history of nephrostomy, hypertension, dyslipidemia, atrial fibrillation, seizures, prostate cancer, and hypothyroidism. Came in with bleeding. I was asked to see him to recommend ho lding the Xarelto. No cardiac symptoms. Allergies: NONE. Review of Systems: Negative. Social History: Negative. Family History: Negative. Medications: At home include Zytiga, Zetia, Plendil, Synthroid, Toprol, prednisone, and Xarelto. Th e Xarelto is being held now. Physical Examination: Vital Signs: Stable, afebrile. HEENT: Negative. Neck: Supple with no bruit. Chest: Clear. Cardiac: Exam revealed atrial fibrillation. Rate controlled. Abdomen: Benign. Extremities: Revealed no clubbing, cyanosis. He had trace edema. Diagnostic Data: Showed a potassium of 3, creatinine of 1.5, AST 78, ALT is 80. BNP is 3207. Impression And Plan: The patient is in chronic atrial fibrillation. He is a do not resuscitate, and I think we need to hold the Xarelto for sure until his hematuria clears. He needs to have his potas sium corrected. His other issues include hypertension, dyslipidemia, seizure disorder, history of pr ostate cancer, and hypothyroidism, are stable at this point. Mr. Conway can certainly restart the Xa relto after his hematuria has cleared. I had suggested that if Mr. Conway and the family are willing to pursue further invasive workup and care as far as atrial fibrillation and the Xarelto and has iss ues with bleeding with it, certainly considering a Watchman procedure may be worth investigating, but I will leave that up to his business machine operator, Dr. Rao. MARIO/ROBB Voice ID: [id number] Report ID: [id number]
== END 2018-02-06 17:00 | disposition home or self-care (01) ==
LOC: ER 08:48 → ERHOLD 12:09 → UNDOADMOB 12:09 → OR 14:18 → 2ND 14:19
PROVIDERS: ADMIT Family Medicine; ATTEND Family Medicine
PROC: 0T7D8DZ Dilation of Urethra with Intraluminal Device, Via Natural or Artificial Opening Endoscopic (ICD-10-PCS; principal; 2018-02-04 15:00)
PROC: 0TND8ZZ Release Urethra, Via Natural or Artificial Opening Endoscopic (ICD-10-PCS; 2018-02-04 15:00)
DX: R31.0 Gross hematuria (principal); R33.8 Other retention of urine; N13.9 Obstructive and reflux uropathy, unspecified; N35.912 Unspecified bulbous urethral stricture, male; N35.911 Unspecified urethral stricture, male, meatal; C61 Malignant neoplasm of prostate; C78.7 Secondary malignant neoplasm of liver and intrahepatic bile duct; C79.51 Secondary malignant neoplasm of bone; I48.2 Chronic atrial fibrillation; I12.9 Hypertensive chronic kidney disease with stage 1 through stage 4 chronic kidney disease, or unspecified chronic kidney disease; N18.2 Chronic kidney disease, stage 2 (mild); N17.9 Acute kidney failure, unspecified; E78.5 Hyperlipidemia, unspecified; E03.9 Hypothyroidism, unspecified; G40.909 Epilepsy, unspecified, not intractable, without status epilepticus; Z66 Do not resuscitate; Z79.01 Long term (current) use of anticoagulants
CPT/HCPCS: 36415 ×2; 51610; 51702; 52276; 52281; 71045; 74176; 74450; 76377; 80048; 80053 ×2; 80076; 83690; 83735 ×3; 83880; 84132; 84484; 85025 ×3; 85610; 86850; 86900; 86901; 87086; 93005; 96374; 96375; 97163; 99284; G0378 ×2; J0330; J0696; J2405 ×2; J2704; J2710; J3010 ×3; J3475; J7030 ×4; 81003; 81015; 87088

== ENCOUNTER 2018-02-07 20:44 | Emergency (ER) | payer OTHER ==
--- OUTSIDE RECORDS SUMMARY | 2018-02-07 20:47 | XMS REPORT | Continuity of Care Document ---
:1950 Author Organization Interface Problems Problem Status Onset Classification Date Comments Source Date Reported D18.01 - Active 07/11/19 [facility] [address] [place] SKIN AND SUBCUTA F03.90, Q78.3 Active 10/09/[address] XRAY Active 08/28/[address] Anemia Resolved Problem 10/17/2015 [facility] Arrhythmia Resolved Problem 10/17/2015 [facility] Hypoglycemic Resolved Problem 10/17/2015 [facility] Hypothyroidism Resolved Problem 10/17/2015 [facility] Migraines Resolved Problem 10/17/2015 [facility] Pituitary cyst Resolved Problem 10/17/2015 [facility] OTHER Active [facility] 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 [facility] CONGENITAL Medical DEFORMITIES [place] Medications Medication Details Route Status Patient Ordering Order Source Instructions Provider Date Midazolam 2 mg, Inactive 09/02/19 [facility] Route: IV, Medical ONCE, Center Dosing Weight 72.727, kg, Start date: 09/02/15 8:03:00 CDT, Stop date: 09/02/15 8:03:00 CDT lidocaine 2% 5 mL, Inactive 09/02/19 [facility] MPF Route: 16 Medical SUB-Q, Center Dosing Weight 72.727, kg, ONCE, Start date: 09/02/15 8:02:00 CDT, Stop date: 09/02/15 8:02:00 CDT Fentanyl 100 Inactive 09/02/19 [facility] microgram, 16 Medical Route: IV, Center ONCE, Dosing Weight 72.727, kg, Start date: 09/02/15 8:02:00 CDT, Stop date: 09/02/15 8:02:00 CDT Omnipaque 300 150 ml, Inactive 09/02/19 [facility] Route: 16 Medical INTRAARTER Center IAL, [...] CT EXAM: NM PET CT Head 10/13 [facility] Dementia Dementia /2016 - Medical This report was dictated by a Wire Drawing Machine Operator/Fellow. I have personally reviewed the images [...] to the normal brain database from the [employer]. FINDINGS: When compared to the normal brain [...] left temporal lobe. Angiogram Angiogram PROCEDURE: 09/01 [facility] cervical cervical /2015 - Medical artery artery 1. Diagnostic Cerebral Angiogram: 6 vessel This report was dictated by a Wire Drawing Machine Operator/Fellow. I have personally reviewed the images [...] irregularity on magnetic resonance imaging. Dr. love Solomno requesting angiogram for further evaluation of aneurysm [...] single wall micropuncture technique and a 5 Tamazight sheath was placed. A 5 Tamazight Angled Ingalls catheter was coaxially advanced with a 0.035 [...] procedure neurological examination was at the patient's [facility]. The patient was was then [...] [facility] Diastolic (mm Hg) 56 09/02/2015 [facility] Respitory Rate 16 09/02/2015 [facility] Respitory Rate 13 09/02/2015 [facility] Systolic (mm Hg) 104 09/02/2015 [facility] Diastolic (mm Hg) 58 09/02/2015 [facility] Systolic (mm Hg) 105 09/02/2015 [facility] Diastolic (mm Hg) 57 09/02/2015 [facility] Respitory Rate 6 09/02/2015 [facility] Height 172.72 cm 09/02/2015 [facility] BMI Calculated 24.38 09/02/2015 [facility] Weight 72.727 09/02/2015 [facility] Encounters Location Location Encounter Encounter Reason Attending ADM DC Status Source Details Type Number For Provider Date Date Visit Outpatient [id number] ERON 09/01 [facility] Bedded [id number] Eron 09/01 09/01 [facility] Outpatient [place] /2015 [facility] Outpatient [id number] LOVE JONE 09/03 [facility] [place] Outpatient [id number] ERON 09/03 [facility] Outpatient [id number] Non 10/13 10/14 [facility] Physician /2015 [facility] Outpatient [id number] ERON 07/28 [facility] [place] Outpatient [id number] BEAU 09/09 [facility] [place] Outpatient [id number] BEAU 03/10 [facility] [place] Procedures Procedure Code Date Perfomer Comments Source Knee arthroplasty [id number] [facility] TURP - Transurethral [id number] [facility]
--- NOTE | 2018-02-07 23:03 | ER ---
Nurse's Notes [facility] Name: Morales Conway Age: 67 yrs Sex: Male : 1950 Arrival Date: 02/07/2018 Time: 20:45 Bed 30 Private MD: Diagnosis: Craft catheter blockage;Hematuria, unspecified Presentation: 02/07 20:55 Presenting complaint: states: He has surgery on Wednesday to have his urethra opened aj1 because he has stage 4 prostate cancer and it had grown over, closing the urethra. He was discharged from the hospital yesterday and his was taught how to irrigate his craft. When his craft stopped draining, she irrigated it and got a lot of clots out, but the patient was still having a lot of pain, so they came to the ER for further evaluation. Transition of care: patient was not received from another setting of care. Onset of symptoms was February 07, 2018. Risk Assessment: Do you want to hurt yourself or someone else? Patient reports no desire to harm self or others. Initial Sepsis Screen: Does the patient meet any 2 criteria? HR > 90 bpm. No. Patient's initial sepsis screen is negative. Does the patient have a suspected source of infection? Yes: Dysuria/Frequency/Urgency/UTI. Care prior to arrival: None. 20:55 Method Of Arrival: Ambulatory aj1 20:55 Acuity: RUBIO 3 aj1 Triage Assessment: 20:58 General: Appears in no apparent distress. uncomfortable, Behavior is calm, cooperative, aj1 appropriate for age. Pain: Complains of pain in suprapubic area Pain currently is 3 out of 10 on a pain scale. Neuro: Level of Consciousness is awake, alert, obeys commands. Cardiovascular: Patient's skin is warm and dry. Respiratory: Airway is patent Respiratory effort is even, unlabored, Respiratory pattern is regular, symmetrical. Historical: - Allergies: 20:58 No Known Allergies; aj1 - Home Meds: 20:58 calcium [Active]; felodipine 5 mg Oral Tb24 1 tab once daily [Active]; levetiracetam aj1 500 mg Oral tab 1 tab 2 times per day [Active]; Lupron Depot (4 Month) 30 mg intramuscular sykt every 4 mo [Active]; metoprolol succinate Oral [Active]; prednisone 5 mg Oral tab 1 tab 2 times per day [Active]; Synthroid Oral [Active]; Xarelto 10 mg Oral tab 1 tab once daily [Active]; Xgeva subcutaneous [Active]; Zetia 10 mg Oral tab 1 tab once daily [Active]; Zytiga 250 mg Oral tab 4 tabs once daily [Active]; - PMHx: 20:58 Atrial Fib; High Cholesterol; Hypertension; Hypothyroidism; PROSTATE CA; Seizures; aj1 - Immunization history:: Flu vaccine is not up to date. - Social history:: Smoking status: Patient/guardian denies using tobacco. - Ebola Screening: : Patient denies travel to an Ebola-affected area in the 21 days before illness onset. - Family history:: not pertinent. - Hospitalizations: : No recent hospitalization is reported. Screenin:30 Abuse screen: Denies threats or abuse. Denies injuries from another. Nutritional rv screening: No deficits noted. Tuberculosis screening: No symptoms or risk factors identified. Fall Risk None identified. Assessment: 21:47 General: Appears in no apparent distress. uncomfortable, Behavior is calm, cooperative. rv Pain: Complains of pain in BLADDER. 21:48 Neuro: Level of Consciousness is awake, alert, obeys commands, Oriented to person, rv place, time, situation. Cardiovascular: Capillary refill < 3 seconds. Respiratory: Airway is patent. GI: No signs and/or symptoms were reported involving the gastrointestinal system. : No signs and/or symptoms were reported regarding the genitourinary system. EENT: No signs and/or symptoms were reported regarding the EENT system. Derm: Skin is intact. Vital Signs: 20:58 BP 108 / 68; Pulse 94; Resp 20; Temp 98.4(TE); Pulse Ox 96% on R/A; Weight 83.01 kg aj1 (R); Height 5 ft. 8 in. (172.72 cm); Pain 3/10; 22:28 BP 117 / 60; Pulse 88; Resp 17; Pulse Ox 98% on R/A; rv 20:58 Body Mass Index 27.82 (83.01 kg, 172.72 cm) aj1 ED Course: 20:45 Patient arrived in ED. al2 20:57 Triage completed. aj1 20:58 Arm band placed on Patient placed in an exam room. aj1 21:07 Kolby De Leon MD is Attending Physician. rn 21:45 Bladder irrigated via Craft with 500 ml normal saline returned yellow urine Patient rv tolerated well. 22:30 No provider procedures requiring assistance completed. Patient did not have IV access rv during this emergency room visit. 23:03 Ene Rivera MD is Referral Physician. rn 23:20 Patient has correct armband on for positive identification. Placed in gown. Bed in low rv position. Adult w/ patient. Pulse ox on. NIBP on. Administered Medications: No medications were administered Outcome: 22:31 Discharged to home via wheelchair. rv 22:31 Condition: improved 22:31 Discharge instructions given to patient, family, Instructed on discharge instructions, follow up and referral plans. BLADDER IRRIGATION Demonstrated understanding of instructions, follow-up care, BLADDER IRRIGATION 23:03 Discharge ordered by . rn 23:20 Patient left the ED. rv Signatures: Zoraida Bose RN LON [email or web address] Kolby De Leon MD MD rn Love, Angelica al2 Vicente, Ronaldo, RN RN rv
--- NOTE | 2018-02-07 23:03 | EDPHYS ---
Physician Documentation [facility] Name: Morales Conway Age: 67 yrs Sex: Male : 1950 Arrival Date: 02/07/2018 Time: 20:45 Bed 30 Private MD: ED Physician Kolby De Leon HPI: 02/07 22:51 This 67 yrs old Male presents to ER via Ambulatory with complaints of Urinary rn Problem. 22:51 The patient presents with urinary symptoms, retention, unable to void. Onset: The rn symptoms/episode began/occurred today. Modifying factors: The symptoms are alleviated by nothing, the symptoms are aggravated by nothing. Severity of symptoms: At their worst the symptoms were moderate, in the emergency department the symptoms are unchanged. The patient has experienced a previous episode. Reports just admitted and had urethral procedure performed, went home with craft, noticed some clots and attempted to irrigate, got some urine output but patient still hurting and not urinating normal, is on abx.. Historical: - Allergies: 20:58 No Known Allergies; aj1 - Home Meds: 20:58 calcium [Active]; felodipine 5 mg Oral Tb24 1 tab once daily [Active]; levetiracetam aj1 500 mg Oral tab 1 tab 2 times per day [Active]; Lupron Depot (4 Month) 30 mg intramuscular sykt every 4 mo [Active]; metoprolol succinate Oral [Active]; prednisone 5 mg Oral tab 1 tab 2 times per day [Active]; Synthroid Oral [Active]; Xarelto 10 mg Oral tab 1 tab once daily [Active]; Xgeva subcutaneous [Active]; Zetia 10 mg Oral tab 1 tab once daily [Active]; Zytiga 250 mg Oral tab 4 tabs once daily [Active]; - PMHx: 20:58 Atrial Fib; High Cholesterol; Hypertension; Hypothyroidism; PROSTATE CA; Seizures; aj1 - Immunization history:: Flu vaccine is not up to date. - Social history:: Smoking status: Patient/guardian denies using tobacco. - Ebola Screening: : Patient denies travel to an Ebola-affected area in the 21 days before illness onset. - Family history:: not pertinent. - Hospitalizations: : No recent hospitalization is reported. ROS: 22:51 Constitutional: Negative for fever, chills, and weight loss, Eyes: Negative for injury, rn pain, redness, and discharge, Neck: Negative for injury, pain, and swelling, Cardiovascular: Negative for chest pain, palpitations, and edema, Respiratory: Negative for shortness of breath, cough, wheezing, and pleuritic chest pain, Abdomen/GI: + lower abd pain : + blocked craft MS/Extremity: Negative for injury and deformity, Skin: Negative for injury, rash, and discoloration, Neuro: Negative for headache, weakness, numbness, tingling, and seizure. Exam: 22:51 Constitutional: This is a well developed, well nourished patient who is awake, alert, rn a little uncomfortable with hand on suprapubic area Abdomen/GI: soft, mild suprapubic tenderness and fullness Male : craft in place with clots, blood tinged, but grossly yellow MS/ Extremity: Pulses equal, no cyanosis. Neurovascular intact. Full, normal range of motion. Equal circumference. Vital Signs: 20:58 BP 108 / 68; Pulse 94; Resp 20; Temp 98.4(TE); Pulse Ox 96% on R/A; Weight 83.01 kg aj1 (R); Height 5 ft. 8 in. (172.72 cm); Pain 3/10; 22:28 BP 117 / 60; Pulse 88; Resp 17; Pulse Ox 98% on R/A; rv 20:58 Body Mass Index 27.82 (83.01 kg, 172.72 cm) aj1 MDM: 21:07 Patient medically screened. rn 22:51 Differential diagnosis: urinary retention, Craft catheter problem. Data reviewed: vital rn signs, nurses notes, and as a result, I will discharge patient. Counseling: I had a detailed discussion with the patient and/or guardian regarding: the historical points, exam findings, and any diagnostic results supporting the discharge/admit diagnosis, the need for outpatient follow up, to return to the emergency department if symptoms worsen or persist or if there are any questions or concerns that arise at home. Response to treatment: the patient's symptoms have markedly improved after treatment, the patient's symptoms have resolved after treatment, the patient's condition has returned to base line, and as a result, I will discharge patient. ED course: Pt with pain resolved after craft irrigation, clear and yellow, no blood, will dc home after 2 hour observation, now with good urine flow. . 02/07 21:10 Order name: Bladder Irrigation; Complete Time: 21:47 rn Administered Medications: No medications were administered Disposition: 02/07/18 23:03 Discharged to Home. Impression: Craft catheter blockage, Hematuria, unspecified. - Condition is Stable. - Discharge Instructions: Craft Catheter Care, Adult, Hematuria, Adult. - Medication Reconciliation Form, Thank You Letter, Antibiotic Education, Prescription Opioid Use form. - Follow up: Ene Rivera MD; When: As needed; Reason: Recheck today's complaints, Re-evaluation by your physician. - Problem is new. - Symptoms have improved. Signatures: Zoraida Bose RN RN aj1 Kolby De Leon MD MD rn Vicente, Ronaldo, RN RN rv Corrections: (The following items were deleted from the chart) 23:20 23:03 02/07/2018 23:03 Discharged to Home. Impression: Craft catheter blockage; rv Hematuria, unspecified. Condition is Stable. Forms are Medication Reconciliation Form, Thank You Letter, Antibiotic Education, Prescription Opioid Use. Follow up: Ene Rivera; When: As needed; Reason: Recheck today's complaints, Re-evaluation by your physician. Problem is new. Symptoms have improved. rn
[2018-02-07 23:54] VITALS: TEMP 98.4
[2018-02-07 23:55] VITALS: BP 117/60; O2SAT 98
== END 2018-02-07 23:20 | disposition home or self-care (01) ==
LOC: ER 20:44
DX: T83.091A Other mechanical complication of indwelling urethral catheter, initial encounter (principal); R31.9 Hematuria, unspecified; E78.00 Pure hypercholesterolemia, unspecified; E03.9 Hypothyroidism, unspecified; I10 Essential (primary) hypertension; I48.91 Unspecified atrial fibrillation; C61 Malignant neoplasm of prostate; Z79.899 Other long term (current) drug therapy
CPT/HCPCS: 51700; 99284